=== PATIENT | male | born 1990 | race Two or more races ===

== ENCOUNTER 2022-05-09 19:59 | Emergency (ER) | payer OTHER, SELFPAY ==
[2022-05-09 20:08] VITALS: BP 144/99; PULSE 80; RESP 20; TEMP 36.8; O2SAT 98; BMI 25.1
[2022-05-09 20:30] LABS: Appearance Urine Clear; Color Urine Yellow; Glucose Urine UA Negative (Negative); Leukocyte Esterase Urine Negative (Negative); Nitrite Urine Negative (Negative); PH 8.5 (5.0-9.0); Urine Blood Negative (Negative); Urine Ketones Trace mg/dL (Negative); Urine Protein Negative (Neg-Trace)
[2022-05-09 20:50] LABS: IDNOW Serial# 6674DD1D; Influenza A Negative (Negative); Influenza B2 Negative (Negative)
[2022-05-09 20:51] LABS: COVID-19 Test Negative (Negative); IDNOW Serial# 55D5AD1C
[2022-05-09 21:05] LABS: MANUAL DIFF FLAG NO
[2022-05-09 21:06] LABS: Basophils Absolute Auto 0.1 X10*3/uL (0.0-0.2); Basophils Percent Auto 0.8 % (0-2); Eosinophils Absolute Auto 0.1 X10*3/uL (0.0-0.4); Eosinophils Percent Auto 1.2 % (0-4); Hematocrit 43.3 % (42.0-52.0); Hemoglobin 15.6 g/dl (14.0-18.0); Imm Gran Abs Auto 0.02 X10*3/uL (0.00-0.03); Imm Gran Pct Auto 0.2 % (0.0-0.4); Lymphocytes Absolute Auto 2.5 X10*3/uL (1.2-4.9); Lymphocytes Percent Auto 28.1 % (20-40); Mean Corpuscular Hemoglobin 31.6 pg (27.0-33.0); Mean Corpuscular Volume 87.7 fL (80.0-98.0); Mean Platelet Volume 11.4 fL (9.4-12.4); Monocytes Absolute Auto 0.7 X10*3/uL (0.1-1.2); Monocytes Percent Auto 7.7 % (2-11); Neutrophils Absolute Auto 5.5 x10*3/uL (2.0-8.3); Platelet Count 305 X10*3/uL (160-400); Red Blood Count 4.94 X10*6/uL (4.60-5.80); Red Cell Distribution Width 12.7 % (11.0-16.0); White Blood Count 8.9 X10*3/uL (4.8-10.8)
[2022-05-09] MEDS: 0.9 % Sodium Chloride 1,000 ML 999 ML IV (21:09)
--- NOTE | 2022-05-09 21:12 | ED_ITS ---
HPI - General Adult General Chief complaint: General Medical Stated complaint: vomiting/ weakness Time Seen by Provider: 05/09/22 20:36 Source: patient Mode of arrival: ambulatory Limitations: no limitations History of Present Illness HPI narrative: Return 1 old male presents to the ED for nausea, vomiting, and diarrhea the past 3 days. Patient denies any fever, chills, symptoms, recent long travel, coughing, sore throat, chest pain, or shortness of breath. Patient admits his last use of Percocet was 3 days ago and going through withdrawals. Patient states percocet was never prescribed. 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 Patient states also smoked marijuana. Patient denies any other drug use. Related Data Allergies Allergy/AdvReac Type Severity Reaction Status Date / Time Penicillins [PENICILLINS] Allergy Unknown UNKNOWN Verified 05/09/22 21:43 Review of Systems Review of Systems: nausea, vomitting, and diarrhea Yes all other systems are reviewed and are negative PMFSH Social History Social History Advance Directives: No Advance Directives Information Provided: Yes Physical Exam ED Vital Signs: Vital Signs - 24 hr 05/09/22 20:08 Temperature 98.3 F Pulse Rate 80 Respiratory Rate 20 Blood Pressure 144/99 H Pulse Oximetry 98 Oxygen Delivery Method Room Air BMI result Body Mass Index 25.1 Const General: cooperative, healthy appearing, comfortable, no acute distress, well developed, alert, awake and Physically active Orientation/consciousness: oriented to person, oriented to place, oriented to time and patient oriented x3 HENMT Head: Yes normal to inspection, Yes No palpable skull fracture present, Yes normocephalic, Yes atraumatic and No abrasion Eyes General: appearance normal, both eyes and all related structures Neck Neck: Yes normal visual inspection, Yes full ROM, Yes no lymphadenopathy, Yes no meningeal signs, Yes trachea midline, Yes supple, No anterior neck swelling and No tender Chest Chest palpation & inspection: normal inspection of the chest and normal palpation of entire chest wall Resp Effort & Inspection: normal respiratory effort and able to speak in complete sentences Auscultation: clear to auscultation bilaterally Cardio Jugular venous distension: no JVD Heart sounds: S1 normal heart sound present and S2 normal heart sound present GI Inspection: Yes normal to inspection and No abdominal wall ecchymosis Palpation (GI): Soft to palpation, not firm, nontender, no guarding and not rigid General: No CVA tenderness and Yes no CVA tenderness Back/Spine/Pelvis Back: no CVA tenderness, No CVA tenderness and No back tenderness Skin General skin exam: no rashes or lesions noted, elasticity normal and turgor normal Neuro General: oriented to person, oriented to place, oriented to time, patient oriented x3, gait normal, tone normal, moves all extremities, Normal light touch and pain sensation, no meningeal signs, no focal motor deficits, CN's II-XI intact bilaterally and normal sensation to monofilament Extrem General: Yes normal to inspection and Yes full ROM Psych Appearance: grossly normal, well kempt and not disheveled Course Course Course Narrative: Differential gastroenteritis versus opiate withdrawal. Labs, fluids, Zofran, and Pepcid ordered. Reevaluation(s) Reevaluation #1: Patient feels better after receiving IV fluids and Zofran. Labs are normal. Patient given list of detox centers to call for follow up to help opoid dependence. Also given paper for [facility] for also opiate dependence. Time: 22:53 Medications Administered Discontinued Medications Generic Name Dose Route Start Last Admin Trade Name Freq PRN Reason Stop Dose Admin Famotidine 20 mg 05/09/22 21:15 05/09/22 21:21 Famotidine/Pf 20 Mg/2 Ml Vial IVPUSH 05/09/22 21:16 20 mg ONCE ONE Administration Sodium Chloride 1,000 mls @ 999 mls/hr 05/09/22 20:47 05/09/22 22:46 Ns IV 05/09/22 21:47 Infused .Q1H1M STA Infusion Ondansetron HCl 4 mg 05/09/22 21:09 05/09/22 21:14 Ondansetron Hcl 4 Mg/2 Ml Vial IVPUSH 05/09/22 21:10 4 mg ONCE ONE Administration Medical Decision Making Medical Decision Making MDM Narrative: Due to her mild presents to ED for nausea vomiting and diarrhea. Patient has not had Percocets and 3 days which he has taken every day 15 mg per day for 1 year. Labs ordered. Patient given IV fluids and Zofran. SARs ordered. Differential Diagnosis Differential Diagnoses: The differential diagnosis associated with the presentation includes (Gastroenteritis. opoid withdrawal, covid, SARS, RSV, Influenza) Admission/Observation Consideration of admission/observation: Escalation of care including admission/observation considered Lab Data MDM Lab Attestation statement: I reviewed the patient's lab results. 05/09/22 20:58 05/09/22 20:58 Labs: Lab Results 05/09/22 05/09/22 05/09/22 Range/Units 20:21 20:21 20:21 WBC (4.8-10.8) X10*3/uL RBC (4.60-5.80) X10*6/uL Hgb (14.0-18.0) g/dl Hct (42.0-52.0) % MCV (80.0-98.0) fL MCH (27.0-33.0) pg MCHC (31.0-36.0) g/dl RDW (11.0-16.0) % Plt Count (160-400) X10*3/uL MPV (9.4-12.4) fL Immature Gran % (Auto) (0.0-0.4) % Neut % (Auto) (45-73) % Lymph % (Auto) (20-40) % [place] % (Auto) (2-11) % Eos % (Auto) (0-4) % Baso % (Auto) (0-2) % Lymph # (Auto) (1.2-4.9) X10*3/uL Placer # (Auto) (0.1-1.2) X10*3/uL Eos # (Auto) (0.0-0.4) X10*3/uL Baso # (Auto) (0.0-0.2) X10*3/uL Abs Immat Gran (auto) (0.00-0.03) X10*3/uL Absolute Neuts (auto) (2.0-8.3) x10*3/uL Absolute Nucleated RBC (0.0-0.012) X10*3/uL Nucleated RBC % (auto) (0.0-0.2) /100WBC Sodium (135-145) mmol/L Potassium (3.3-5.1) mmol/L Chloride (96-108) mmol/L Carbon Dioxide (22-29) mmol/L Anion Gap (12-20) BUN (9-16) mg/dL Creatinine (0.5-1.4) mg/dL Estim Creat Clear Calc Estimated GFR Random Glucose (60-115) mg/dL Calcium (8.4-10.2) mg/dL Total Bilirubin (0.0-1.0) mg/dL AST (5-37) U/L ALT (0-40) U/L Alkaline Phosphatase (39-117) U/L Total Protein (6.5-8.0) g/dL Albumin (3.5-5.0) g/dL Urine Color Yellow Urine Appearance Clear Urine pH 8.5 (5.0-9.0) Ur Specific [place] 1.020 (1.005-1.025) Urine Protein Negative (Neg-Trace) mg/dL Urine Glucose (UA) Negative (Negative) mg/dL Urine Ketones Trace (Negative) mg/dL Urine Blood Negative (Negative) Urine Nitrite Negative (Negative) Ur Leukocyte Esterase Negative (Negative) COVID-19 ([facility]) Negative (Negative) COVID-19 Clin Com See Note Influenza Type A (B[facility]) Negative (Negative) Influenza Type B (BRAYAN) Negative (Negative) Influenza A & B Note See Note 05/09/22 05/09/22 Range/Units 20:58 20:58 WBC 8.9 (4.8-10.8) X10*3/uL RBC 4.94 (4.60-5.80) X10*6/uL Hgb 15.6 (14.0-18.0) g/dl Hct 43.3 (42.0-52.0) % MCV 87.7 (80.0-98.0) fL MCH 31.6 (27.0-33.0) pg MCHC 36.0 (31.0-36.0) g/dl RDW 12.7 (11.0-16.0) % Plt Count 305 (160-400) X10*3/uL MPV 11.4 (9.4-12.4) fL Immature Gran % (Auto) 0.2 (0.0-0.4) % Neut % (Auto) 62.0 (45-73) % Lymph % (Auto) 28.1 (20-40) % Placer % (Auto) 7.7 (2-11) % Eos % (Auto) 1.2 (0-4) % Baso % (Auto) 0.8 (0-2) % Lymph # (Auto) 2.5 (1.2-4.9) X10*3/uL Placer # (Auto) 0.7 (0.1-1.2) X10*3/uL Eos # (Auto) 0.1 (0.0-0.4) X10*3/uL Baso # (Auto) 0.1 (0.0-0.2) X10*3/uL Abs Immat Gran (auto) 0.02 (0.00-0.03) X10*3/uL Absolute Neuts (auto) 5.5 (2.0-8.3) x10*3/uL Absolute Nucleated RBC 0.000 (0.0-0.012) X10*3/uL Nucleated RBC % (auto) 0.0 (0.0-0.2) /100WBC Sodium 140 (135-145) mmol/L Potassium 4.3 (3.3-5.1) mmol/L Chloride 107 (96-108) mmol/L Carbon Dioxide 27 (22-29) mmol/L Anion Gap 10 L (12-20) BUN 11 (9-16) mg/dL Creatinine 0.99 (0.5-1.4) mg/dL Estim Creat Clear Calc 106.1 Estimated GFR > 60 Random Glucose 81 (60-115) mg/dL Calcium 9.7 (8.4-10.2) mg/dL Total Bilirubin 0.6 (0.0-1.0) mg/dL AST 21 (5-37) U/L ALT 31 (0-40) U/L Alkaline Phosphatase 62 (39-117) U/L Total Protein 6.9 (6.5-8.0) g/dL Albumin 4.3 (3.5-5.0) g/dL Urine Color Urine Appearance Urine pH (5.0-9.0) Ur Specific [place] (1.005-1.025) Urine Protein (Neg-Trace) mg/dL Urine Glucose (UA) (Negative) mg/dL Urine Ketones (Negative) mg/dL Urine Blood (Negative) Urine Nitrite (Negative) Ur Leukocyte Esterase (Negative) COVID-19 ([facility]) (Negative) COVID-19 Clin Com Influenza Type A ([facility]RAYAN) (Negative) Influenza Type B ([facility]RAYAN) (Negative) Influenza A & B Note Independent Historian Clinical information obtained from an independent historian. History obtained from or confirmed by: Spouse and Friend Discharge Plan Discharge Clinical Impression: Opioid withdrawal Patient Disposition: Home, Self-Care Additional Instructions: Your blood work came back normal. UA came back negative for COVID, flu, and RSV. Please follow-up with list of detox centers given to you. To the ED immediately for any tremors, abdominal pain, nausea, vomiting, blood in stool, intractable diarrhea intractable fever, chills coughing, chest pain, shortness of breath, dysuria, hematuria, or any other concerning symptoms. Stand Alone Forms: Work/School Release Interventions: ED Discharge Assessment Last Done: 05/09/22 23:01 Discharge Date/Time: 05/09/22 23:02 Print Language: Greenlandic
[2022-05-09] MEDS: ondansetron HCL 4 MG/2 ML VIAL IVPUSH (21:14)
[2022-05-09] MEDS: Famotidine/PF 20 MG/2 ML VIAL IVPUSH (21:21)
[2022-05-09 21:24] LABS: Alanine Aminotransferase 31 U/L (0-40); Albumin Level 4.3 g/dL (3.5-5.0); Alkaline Phosphatase 62 U/L (39-117); Anion Gap 10 (12-20); Aspartate Amino Transferase 21 U/L (5-37); Bilirubin Total 0.6 mg/dL (0.0-1.0); Blood Urea Nitrogen 11 mg/dL (9-16); Calcium 9.7 mg/dL (8.4-10.2); Carbon Dioxide 27 mmol/L (22-29); Chloride 107 mmol/L (96-108); Creatinine Clr Calc Pharmacy 106.1; Estimated Glomerular Filt Rate > 60; Glucose Random 81 mg/dL (60-115); Potassium 4.3 mmol/L (3.3-5.1); Sodium 140 mmol/L (135-145); Total Protein 6.9 g/dL (6.5-8.0)
--- NOTE | 2022-05-09 21:32 | PC.NURSE ---
pt reports with complaints of n/v/d for the -past 3 days- pt sts his father is at home with similar symptoms. labs, covid/flu swab ordered, 20g IV placed in right medial AC currently infusing 0.9%NS per orders. pt resting with warm blankets, friend at bedside NAD.
== END 2022-05-09 23:02 | disposition home or self-care (01) ==
PROVIDERS: Physician Assistant; Emergency Provider Emergency Medicine Emergency Medical Services
DX: F11.23 Opioid dependence with withdrawal (principal); R11.2 Nausea with vomiting, unspecified; Z20.822 Contact with and (suspected) exposure to COVID-19
CPT/HCPCS: 36415; 80053; 81003; 85025; 87502; 87635; 96361; 96374; 96375; 99284; J2405

== ENCOUNTER 2022-05-29 13:01 | Emergency (ER) | payer OTHER, SELFPAY ==
[2022-05-29 13:15] VITALS: BP 107/66; PULSE 86; RESP 16; TEMP 37.3; O2SAT 97; BMI 24.7
--- NOTE | 2022-05-29 13:15 | ED.GENADULT ---
HPI - General Adult General Chief complaint: Nausea/Vomiting/Diarrhea <JOAN Angelo - Last Filed: 05/29/22 13:16> Stated complaint: not eating, vomiting, dizzy, weak <JOAN Angelo - Last Filed: 05/29/22 13:16> Time Seen by Provider: 05/29/22 16:03 <JOAN Angelo - Last Filed: 05/29/22 13:16> History of Present Illness HPI narrative: patient complains of nausea vomiting and diarrhea for 2-3 days, today he has vomited everything he has eaten, he has had 3 or 4 episodes of watery diarrhea per day, he did have a similar episode of vomiting and diarrhea 3 weeks ago He denies abdominal pain, there is no blood in stool or vomitus, there is no fainting or feeling faint no chest pain no dysuria, no rash, no fever <JOAN Jiménez - Last Filed: 05/29/22 18:15> Related Data Home medications: Previous Rx's Medication Instructions Recorded loperamide 2 mg capsule (Imodium 2 mg PO Q6H PRN loose stool #10 05/29/22 A-D) caps ondansetron 4 mg disintegrating 4 mg PO Q6H PRN nausea and 05/29/22 tablet vomiting #14 tabs <JOAN Angelo - Last Filed: 05/29/22 13:16> Allergies/adverse reactions: Allergies Allergy/AdvReac Type Severity Reaction Status Date / Time Penicillins [PENICILLINS] Allergy Unknown UNKNOWN Verified 05/29/22 13:15 <JOAN Angelo - Last Filed: 05/29/22 13:16> [facility] Past Medical History Source: nursing notes reviewed <JOAN Jiménez - Last Filed: 05/29/22 18:15> Medical History: Medical History (Updated 05/29/22 @ 18:10 by JOAN Jiménez) Anxiety <JOAN Angelo - Last Filed: 05/29/22 13:16> Social History Social History: Social History Alcohol intake: current Alcohol intake frequency: holidays/special occasions only Smoked in Last 30 Days: Yes Use of substances other than those prescribed or required for medical reasons: Yes Substance Use Type: Marijuana Advance Directives: No Advance Directives Information Provided: No <JOAN Angelo Last Filed: 05/29/22 13:16> Physical Exam ED Vital Signs: Vital Signs - 24 hr 05/29/22 13:15 05/29/22 16:00 Temperature 99.2 F 97.8 F Pulse Rate 86 76 Respiratory Rate 16 16 Blood Pressure 107/66 101/66 Pulse Oximetry 97 99 Oxygen Delivery Method Room Air Room Air BMI result Body Mass Index 24.7 <JOAN Angelo Last Filed: 05/29/22 13:16> Vital Signs - 24 hr 05/29/22 13:15 05/29/22 16:00 Temperature 99.2 F 97.8 F Pulse Rate 86 76 Respiratory Rate 16 16 Blood Pressure 107/66 101/66 Pulse Oximetry 97 99 Oxygen Delivery Method Room Air Room Air BMI result Body Mass Index 24.7 <JOAN Jiménez Last Filed: 05/29/22 18:15> general appearance no acute distress The eyes are anicteric no pallor The pharynx no redness swelling or exudate, mucous membranes are mildly dry The neck is supple Chest clear to auscultation bilateral Heart no murmur Abdomen soft nontender Extremities for range of motion x4 Skin no rashes, turgor is normal <JOAN Jiménez Last Filed: 05/29/22 18:15> Course Course Course Narrative: RME performed by Leanne Adams PA-C. Patient is a 31 year old male presenting to the emergency department with nausea, vomiting, and dizziness. Labs ordered. Patient placed abck in the waiting room pending results and room availability. <JOAN Angelo Last Filed: 05/29/22 13:16> RME performed by Leanne Adams PA-C. Patient is a 31 year old male presenting to the emergency department with nausea, vomiting, and dizziness. Labs ordered. Patient placed abck in the waiting room pending results and room availability. No significant findings in lab work, LFTs renal function all normal CBC no anemia, no white count Patient was given a L of fluids and Zofran with resolution of nausea any felt much better and more energetic after the fluids and was sitting up and ready to go home Well-appearing patient tolerating p.o. was discharged <JOAN Jiménez Last Filed: 05/29/22 18:15> Medications Administered Discontinued Medications Generic Name Dose Route Start Last Admin Trade Name Freq PRN Reason Stop Dose Admin Sodium Chloride 1,000 mls @ 999 mls/hr 05/29/22 16:45 05/29/22 16:47 Ns IVCONT 05/29/22 17:45 999 mls/hr .Q1H1M AVILA Administration Ondansetron HCl 4 mg 05/29/22 16:39 05/29/22 16:47 Ondansetron Hcl 4 Mg/2 Ml Vial IVPUSH 05/29/22 16:40 4 mg ONCE ONE Administration <JOAN nAgelo - Last Filed: 05/29/22 13:16> Medications Administered Discontinued Medications Generic Name Dose Route Start Last Admin Trade Name Freq PRN Reason Stop Dose Admin Sodium Chloride 1,000 mls @ 999 mls/hr 05/29/22 16:45 05/29/22 16:47 Ns IVCONT 05/29/22 17:45 999 mls/hr .Q1H1M AVILA Administration Ondansetron HCl 4 mg 05/29/22 16:39 05/29/22 16:47 Ondansetron Hcl 4 Mg/2 Ml Vial IVPUSH 05/29/22 16:40 4 mg ONCE ONE Administration <JOAN Jiménez - Last Filed: 05/29/22 18:15> Medical Decision Making Lab Data MDM Lab Attestation statement: I reviewed the patient's lab results. <JOAN Jiménez - Last Filed: 05/29/22 18:15> Result Diagrams: 05/29/22 13:34 05/29/22 13:34 <JOAN Angelo - Last Filed: 05/29/22 13:16> Labs: Lab Results 05/29/22 05/29/22 05/29/22 Range/Units 13:34 13:34 13:34 WBC 6.0 (4.8-10.8) X10*3/uL RBC 5.21 (4.60-5.80) X10*6/uL Hgb 16.3 (14.0-18.0) g/dl Hct 46.4 (42.0-52.0) % MCV 89.1 (80.0-98.0) fL MCH 31.3 (27.0-33.0) pg MCHC 35.1 (31.0-36.0) g/dl RDW 12.6 (11.0-16.0) % Plt Count 282 (160-400) X10*3/uL MPV 11.5 (9.4-12.4) fL Immature Gran % (Auto) 0.2 (0.0-0.4) % Neut % (Auto) 61.5 (45-73) % Lymph % (Auto) 26.2 (20-40) % [place] % (Auto) 9.1 (2-11) % Eos % (Auto) 2.2 (0-4) % Baso % (Auto) 0.8 (0-2) % Lymph # (Auto) 1.6 (1.2-4.9) X10*3/uL [place] # (Auto) 0.6 (0.1-1.2) X10*3/uL Eos # (Auto) 0.1 (0.0-0.4) X10*3/uL Baso # (Auto) 0.1 (0.0-0.2) X10*3/uL Abs Immat Gran (auto) 0.01 (0.00-0.03) X10*3/uL Absolute Neuts (auto) 3.7 (2.0-8.3) x10*3/uL Absolute Nucleated RBC 0.000 (0.0-0.012) X10*3/uL Nucleated RBC % (auto) 0.0 (0.0-0.2) /100WBC Sodium 143 (135-145) mmol/L Potassium 4.4 (3.3-5.1) mmol/L Chloride 110 H (96-108) mmol/L Carbon Dioxide 25 (22-29) mmol/L Anion Gap 12 (12-20) BUN 9 (9-16) mg/dL Creatinine 1.20 (0.5-1.4) mg/dL Estim Creat Clear Calc 87.5 Estimated GFR > 60 Random Glucose 80 (60-115) mg/dL Calcium 9.6 (8.4-10.2) mg/dL Magnesium 1.9 (1.6-2.6) mg/dL Total Bilirubin 0.7 (0.0-1.0) mg/dL AST 20 (5-37) U/L ALT 29 (0-40) U/L Alkaline Phosphatase 65 (39-117) U/L Total Protein 7.2 (6.5-8.0) g/dL Albumin 4.3 (3.5-5.0) g/dL COVID-19 ([facility]) Negative (Negative) COVID-19 Clin Com See Note <JOAN Angelo - Last Filed: 05/29/22 13:16> Lab Results 05/29/22 05/29/22 05/29/22 Range/Units 13:34 13:34 13:34 WBC 6.0 (4.8-10.8) X10*3/uL RBC 5.21 (4.60-5.80) X10*6/uL Hgb 16.3 (14.0-18.0) g/dl Hct 46.4 (42.0-52.0) % MCV 89.1 (80.0-98.0) fL MCH 31.3 (27.0-33.0) pg MCHC 35.1 (31.0-36.0) g/dl RDW 12.6 (11.0-16.0) % Plt Count 282 (160-400) X10*3/uL MPV 11.5 (9.4-12.4) fL Immature Gran % (Auto) 0.2 (0.0-0.4) % Neut % (Auto) 61.5 (45-73) % Lymph % (Auto) 26.2 (20-40) % [place] % (Auto) 9.1 (2-11) % Eos % (Auto) 2.2 (0-4) % Baso % (Auto) 0.8 (0-2) % Lymph # (Auto) 1.6 (1.2-4.9) X10*3/uL [place] # (Auto) 0.6 (0.1-1.2) X10*3/uL Eos # (Auto) 0.1 (0.0-0.4) X10*3/uL Baso # (Auto) 0.1 (0.0-0.2) X10*3/uL Abs Immat Gran (auto) 0.01 (0.00-0.03) X10*3/uL Absolute Neuts (auto) 3.7 (2.0-8.3) x10*3/uL Absolute Nucleated RBC 0.000 (0.0-0.012) X10*3/uL Nucleated RBC % (auto) 0.0 (0.0-0.2) /100WBC Sodium 143 (135-145) mmol/L Potassium 4.4 (3.3-5.1) mmol/L Chloride 110 H (96-108) mmol/L Carbon Dioxide 25 (22-29) mmol/L Anion Gap 12 (12-20) BUN 9 (9-16) mg/dL Creatinine 1.20 (0.5-1.4) mg/dL Estim Creat Clear Calc 87.5 Estimated GFR > 60 Random Glucose 80 (60-115) mg/dL Calcium 9.6 (8.4-10.2) mg/dL Magnesium 1.9 (1.6-2.6) mg/dL Total Bilirubin 0.7 (0.0-1.0) mg/dL AST 20 (5-37) U/L ALT 29 (0-40) U/L Alkaline Phosphatase 65 (39-117) U/L Total Protein 7.2 (6.5-8.0) g/dL Albumin 4.3 (3.5-5.0) g/dL COVID-19 ([facility]) Negative (Negative) COVID-19 Clin Com See Note <JOAN Jiménez - Last Filed: 05/29/22 18:15> Discharge Plan Discharge Clinical Impression: Gastroenteritis <JOAN Angelo - Last Filed: 05/29/22 13:16> Patient Disposition: Home, Self-Care <JOAN Angelo - Last Filed: 05/29/22 13:16> Additional Instructions: use Zofran if needed for nausea, Imodium if needed for diarrhea Drink plenty of fluids, or Gatorade to stay hydrated Return any time any worse condition or any concerns <JOAN Angelo - Last Filed: 05/29/22 13:16> Prescriptions: New loperamide [Imodium A-D] 2 mg capsule 2 mg PO Q6H PRN (Reason: loose stool) Qty: 10 0RF Rx Instructions: maximum 4 tabs, 8 mg per day ondansetron 4 mg tablet,disintegrating 4 mg PO Q6H PRN (Reason: nausea and vomiting) Qty: 14 0RF <JOAN Angelo - Last Filed: 05/29/22 13:16>
[2022-05-29 13:39] LABS: MANUAL DIFF FLAG NO
[2022-05-29 13:40] LABS: Basophils Absolute Auto 0.1 X10*3/uL (0.0-0.2); Basophils Percent Auto 0.8 % (0-2); Eosinophils Absolute Auto 0.1 X10*3/uL (0.0-0.4); Eosinophils Percent Auto 2.2 % (0-4); Hematocrit 46.4 % (42.0-52.0); Hemoglobin 16.3 g/dl (14.0-18.0); Imm Gran Abs Auto 0.01 X10*3/uL (0.00-0.03); Imm Gran Pct Auto 0.2 % (0.0-0.4); Lymphocytes Absolute Auto 1.6 X10*3/uL (1.2-4.9); Lymphocytes Percent Auto 26.2 % (20-40); Mean Corpuscular HGB Conc 35.1 g/dl (31.0-36.0); Mean Corpuscular Hemoglobin 31.3 pg (27.0-33.0); Mean Corpuscular Volume 89.1 fL (80.0-98.0); Mean Platelet Volume 11.5 fL (9.4-12.4); Monocytes Absolute Auto 0.6 X10*3/uL (0.1-1.2); Monocytes Percent Auto 9.1 % (2-11); Neutrophils Absolute Auto 3.7 x10*3/uL (2.0-8.3); Neutrophils Percent Auto 61.5 % (45-73); Platelet Count 282 X10*3/uL (160-400); Red Blood Count 5.21 X10*6/uL (4.60-5.80); Red Cell Distribution Width 12.6 % (11.0-16.0)
[2022-05-29 13:57] LABS: Alanine Aminotransferase 29 U/L (0-40); Albumin Level 4.3 g/dL (3.5-5.0); Alkaline Phosphatase 65 U/L (39-117); Anion Gap 12 (12-20); Aspartate Amino Transferase 20 U/L (5-37); Bilirubin Total 0.7 mg/dL (0.0-1.0); Blood Urea Nitrogen 9 mg/dL (9-16); Calcium 9.6 mg/dL (8.4-10.2); Carbon Dioxide 25 mmol/L (22-29); Chloride 110 mmol/L (96-108); Creatinine Clr Calc Pharmacy 87.5; Estimated Glomerular Filt Rate > 60; Glucose Random 80 mg/dL (60-115); Magnesium 1.9 mg/dL (1.6-2.6); Potassium 4.4 mmol/L (3.3-5.1); Sodium 143 mmol/L (135-145); Total Protein 7.2 g/dL (6.5-8.0)
[2022-05-29 13:59] LABS: COVID-19 Test Negative (Negative); IDNOW Serial# BCCEAD1C
[2022-05-29 16:00] VITALS: BP 101/66; PULSE 76; RESP 16; TEMP 36.6; O2SAT 99
--- NOTE | 2022-05-29 16:20 | PC.NURSE ---
pt AOx3, vss. reports N/V/D x3days, a recurrence of the same symptoms from three weeks ago. reports frequent nose bleeds
[2022-05-29] MEDS: 0.9 % Sodium Chloride 1,000 ML 999 ML IVCONT (16:47)
[2022-05-29] MEDS: ondansetron HCL 4 MG/2 ML VIAL IVPUSH (16:47)
--- NOTE | 2022-05-29 16:48 | PC.NURSE ---
iv inserted. zofran given per order. fluids running. will cont to monitor
== END 2022-05-29 16:20 | disposition home or self-care (01) ==
PROVIDERS: Physician Assistant Medical; Emergency Provider Emergency Medicine
DX: K52.9 Noninfective gastroenteritis and colitis, unspecified (principal); R11.2 Nausea with vomiting, unspecified; Z20.822 Contact with and (suspected) exposure to COVID-19; Z20.828 Contact with and (suspected) exposure to other viral communicable diseases; Z79.899 Other long term (current) drug therapy
CPT/HCPCS: 80053; 83735; 85025; 87635; 96361; 96374; 99284; J2405

== ENCOUNTER 2022-06-06 09:28 | Emergency (ER) | payer OTHER, SELFPAY ==
[2022-06-06 09:31] VITALS: BP 107/72; PULSE 92; RESP 18; TEMP 36.9; O2SAT 99; BMI 22.1
[2022-06-06 09:44] LABS: MANUAL DIFF FLAG NO
[2022-06-06 10:02] LABS: Basophils Absolute Auto 0.1 X10*3/uL (0.0-0.2); Basophils Percent Auto 0.9 % (0-2); Eosinophils Absolute Auto 0.1 X10*3/uL (0.0-0.4); Eosinophils Percent Auto 1.2 % (0-4); Hematocrit 46.5 % (42.0-52.0); Hemoglobin 16.7 g/dl (14.0-18.0); Imm Gran Abs Auto 0.02 X10*3/uL (0.00-0.03); Imm Gran Pct Auto 0.3 % (0.0-0.4); Lymphocytes Percent Auto 34.5 % (20-40); Mean Corpuscular HGB Conc 35.9 g/dl (31.0-36.0); Mean Corpuscular Hemoglobin 31.5 pg (27.0-33.0); Mean Corpuscular Volume 87.6 fL (80.0-98.0); Mean Platelet Volume 12.7 fL (9.4-12.4); Monocytes Absolute Auto 0.8 X10*3/uL (0.1-1.2); Monocytes Percent Auto 13.7 % (2-11); Neutrophils Absolute Auto 2.8 x10*3/uL (2.0-8.3); Neutrophils Percent Auto 49.4 % (45-73); Platelet Count 249 X10*3/uL (160-400); Red Blood Count 5.31 X10*6/uL (4.60-5.80); Red Cell Distribution Width 12.9 % (11.0-16.0); White Blood Count 5.8 X10*3/uL (4.8-10.8)
[2022-06-06 10:04] LABS: COVID-19 Test Positive (Negative); IDNOW Serial# 08D9AD1C
--- NOTE | 2022-06-06 10:05 | ED_ITS ---
HPI - Nausea/Vomiting/Diarrhea General Chief complaint: Abdominal Pain Stated complaint: vomitting Time Seen by Provider: 06/06/22 09:53 Source: patient Mode of arrival: ambulatory Limitations: no limitations History of Present Illness HPI Narrative: This is a 31 years old presented to the emergency room with a chief complaint of nausea and vomiting, he states that he is coming off of Percocet. MD elicited complaint: nausea and vomiting Onset (ago): day(s) (4) Description of vomiting: watery Associated nausea: Yes Associated abdominal pain: No Location of pain: none Exacerbating factors: none Relieving factors: none Related Data Previous Rx's Medication Instructions Recorded loperamide 2 mg capsule (Imodium 2 mg PO Q6H PRN loose stool #10 05/29/22 A-D) caps ondansetron 4 mg disintegrating 4 mg PO Q6H PRN nausea and 05/29/22 tablet vomiting #14 tabs Allergies Allergy/AdvReac Type Severity Reaction Status Date / Time Penicillins [PENICILLINS] Allergy Unknown UNKNOWN Verified 05/29/22 13:15 Review of Systems Constitutional: Constitutional: Reports no additional constitutional complaints Cardiovascular: Cardiovascular: Reports no additional cardiovascular complaints Gastrointestinal: Gastrointestinal: Reports nausea and Reports vomiting PMFSH Past Medical History Attestation statement: The following information was validated with the patient. Medical History Anxiety Social History Social History Alcohol intake: never Use of substances other than those prescribed or required for medical reasons: No Substance Use Type: Marijuana Advance Directives: No Advance Directives Information Provided: No Physical Exam Vital Signs: Vital Signs: Last Vital Signs Temp 98.5 F 06/06/22 09:31 Pulse 92 06/06/22 09:31 Resp 18 06/06/22 09:31 BP 107/72 06/06/22 09:31 Pulse Ox 99 06/06/22 09:31 O2 Del Method Room Air 06/06/22 09:31 BMI result Body Mass Index 22.1 Const: General: cooperative and healthy appearing Nutritional Appearance: well nourished Orientation/consciousness: patient oriented x3 Limitations: no limitations HEENT: Head: Yes normal to inspection Ears: hearing grossly normal bilaterally Face and sinus: Yes normal facial exam Mouth: Normal oral and palatal mucosa present Throat: Yes posterior oropharynx normal Neck: Neck: Yes normal visual inspection and Yes full ROM Chest: Chest palpation & inspection: normal inspection of the chest Resp: Effort & Inspection: normal respiratory effort and able to speak in complete sentences Auscultation: clear to auscultation bilaterally Cardio: Jugular venous distension: no JVD Rate: regular rate Rhythm: regular rhythm GI: Inspection: Yes normal to inspection Palpation (GI): Soft to palpation, not firm and nontender Skin: General skin exam: no rashes or lesions noted, elasticity normal and turgor normal Neuro: General: patient oriented x3 Course Reevaluation(s) Reevaluation #1: I feel great,can I go home now? Patient feels well labs okay is COVID positive proceed with discharge Time: 12:07 Medications Administered Discontinued Medications Generic Name Dose Route Start Last Admin Trade Name Freq PRN Reason Stop Dose Admin Sodium Chloride 1,000 mls @ 999 mls/hr 06/06/22 10:15 06/06/22 11:02 Ns IVCONT 06/06/22 11:15 Infused .Q1H1M AVILA Infusion Sodium Chloride 1,000 mls @ 999 mls/hr 06/06/22 10:15 06/06/22 11:25 Ns IVCONT 06/06/22 11:15 999 mls/hr .Q1H1M AVILA Administration Metoclopramide HCl 10 mg 06/06/22 10:03 06/06/22 10:16 Metoclopramide Hcl 10 Mg/2 Ml Vial IVPUSH 06/06/22 10:04 10 mg ONCE ONE Administration Medical Decision Making Medical Decision Making [facility] Narrative: Patient presented with nausea vomiting we go ahead and insert an IV hydrate him antiemetic and reassess Differential Diagnosis Differential Diagnoses: The differential diagnosis associated with the presentation includes Differential diagnosis is broad including withdrawal syndrome from opioid CT/gastroenteritis/viral illness Lab Data [facility] Lab Attestation statement: I reviewed the patient's lab results. 06/06/22 09:40 06/06/22 05:00 Labs: Lab Results 06/06/22 06/06/22 06/06/22 Range/Units 05:00 09:40 09:40 WBC 5.8 (4.8-10.8) X10*3/uL RBC 5.31 (4.60-5.80) X10*6/uL Hgb 16.7 (14.0-18.0) g/dl Hct 46.5 (42.0-52.0) % MCV 87.6 (80.0-98.0) fL MCH 31.5 (27.0-33.0) pg MCHC 35.9 (31.0-36.0) g/dl RDW 12.9 (11.0-16.0) % Plt Count 249 (160-400) X10*3/uL MPV 12.7 H (9.4-12.4) fL Immature Gran % (Auto) 0.3 (0.0-0.4) % Neut % (Auto) 49.4 (45-73) % Lymph % (Auto) 34.5 (20-40) % [place] % (Auto) 13.7 H (2-11) % Eos % (Auto) 1.2 (0-4) % Baso % (Auto) 0.9 (0-2) % Lymph # (Auto) 2.0 (1.2-4.9) X10*3/uL [place] # (Auto) 0.8 (0.1-1.2) X10*3/uL Eos # (Auto) 0.1 (0.0-0.4) X10*3/uL Baso # (Auto) 0.1 (0.0-0.2) X10*3/uL Abs Immat Gran (auto) 0.02 (0.00-0.03) X10*3/uL Absolute Neuts (auto) 2.8 (2.0-8.3) x10*3/uL Absolute Nucleated RBC 0.000 (0.0-0.012) X10*3/uL Nucleated RBC % (auto) 0.0 (0.0-0.2) /100WBC Sodium 142 (135-145) mmol/L Potassium 4.0 (3.3-5.1) mmol/L Chloride 110 H (96-108) mmol/L Carbon Dioxide 20 L (22-29) mmol/L Anion Gap 16 (12-20) BUN 10 (9-16) mg/dL Creatinine 1.15 (0.5-1.4) mg/dL Estim Creat Clear Calc 87.9 Estimated GFR > 60 Random Glucose 99 (60-115) mg/dL Calcium 9.5 (8.4-10.2) mg/dL Total Bilirubin 0.6 (0.0-1.0) mg/dL AST 20 (5-37) U/L ALT 25 (0-40) U/L Alkaline Phosphatase 62 (39-117) U/L Total Protein 7.2 (6.5-8.0) g/dL Albumin 4.4 (3.5-5.0) g/dL Urine Color Urine Appearance Urine pH (5.0-9.0) Ur Specific [place] (1.005-1.025) Urine Protein (Neg-Trace) mg/dL Urine Glucose (UA) (Negative) mg/dL Urine Ketones (Negative) mg/dL Urine Blood (Negative) Urine Nitrite (Negative) Ur Leukocyte Esterase (Negative) Urine RBC (0-2) /HPF Urine WBC (0-5) /HPF Ur Squamous Epith Cells (0-2) /HPF Urine Bacteria (None Seen) Hyaline Casts (0-2) /LPF COVID-19 ([facility]) Positive A (Negative) COVID-19 Clin Com See Note 06/06/22 Range/Units 11:43 WBC (4.8-10.8) X10*3/uL RBC (4.60-5.80) X10*6/uL Hgb (14.0-18.0) g/dl Hct (42.0-52.0) % MCV (80.0-98.0) fL MCH (27.0-33.0) pg MCHC (31.0-36.0) g/dl RDW (11.0-16.0) % Plt Count (160-400) X10*3/uL MPV (9.4-12.4) fL Immature Gran % (Auto) (0.0-0.4) % Neut % (Auto) (45-73) % Lymph % (Auto) (20-40) % [place] % (Auto) (2-11) % Eos % (Auto) (0-4) % Baso % (Auto) (0-2) % Lymph # (Auto) (1.2-4.9) X10*3/uL [place] # (Auto) (0.1-1.2) X10*3/uL Eos # (Auto) (0.0-0.4) X10*3/uL Baso # (Auto) (0.0-0.2) X10*3/uL Abs Immat Gran (auto) (0.00-0.03) X10*3/uL Absolute Neuts (auto) (2.0-8.3) x10*3/uL Absolute Nucleated RBC (0.0-0.012) X10*3/uL Nucleated RBC % (auto) (0.0-0.2) /100WBC Sodium (135-145) mmol/L Potassium (3.3-5.1) mmol/L Chloride (96-108) mmol/L Carbon Dioxide (22-29) mmol/L Anion Gap (12-20) BUN (9-16) mg/dL Creatinine (0.5-1.4) mg/dL Estim Creat Clear Calc Estimated GFR Random Glucose (60-115) mg/dL Calcium (8.4-10.2) mg/dL Total Bilirubin (0.0-1.0) mg/dL AST (5-37) U/L ALT (0-40) U/L Alkaline Phosphatase (39-117) U/L Total Protein (6.5-8.0) g/dL Albumin (3.5-5.0) g/dL Urine Color Yellow Urine Appearance Clear Urine pH 6.0 (5.0-9.0) Ur Specific [place] 1.015 (1.005-1.025) Urine Protein Negative (Neg-Trace) mg/dL Urine Glucose (UA) Negative (Negative) mg/dL Urine Ketones Trace (Negative) mg/dL Urine Blood Negative (Negative) Urine Nitrite Negative (Negative) Ur Leukocyte Esterase Negative (Negative) Urine RBC 0-2 (0-2) /HPF Urine WBC 0-5 (0-5) /HPF Ur Squamous Epith Cells 0-2 (0-2) /HPF Urine Bacteria None Seen (None Seen) Hyaline Casts 0-2 (0-2) /LPF COVID-19 ([facility]) (Negative) COVID-19 Clin Com Independent Historian Clinical information obtained from an independent historian. History obtained f rom or confirmed by: Friend Discharge Plan Discharge Clinical Impression: Vomiting, COVID-19 Patient Disposition: Home, Self-Care Instructions: Acute Nausea and Vomiting (ED), COVID-19 (Coronavirus Disease 20 19) (ED) Additional Instructions: Liquid diet today, follow-up with your primary care physician, return if you worse. You tested positive for COVID as well Prescriptions: No Action loperamide [Imodium A-D] 2 mg capsule 2 mg PO Q6H PRN (Reason: loose stool) Qty: 10 0RF Rx Instructions: maximum 4 tabs, 8 mg per day ondansetron 4 mg tablet,disintegrating 4 mg PO Q6H PRN (Reason: nausea and vomiting) Qty: 14 0RF Referrals: Physician,None [Primary Care Provider] - 2 days
[2022-06-06 10:07] LABS: Alanine Aminotransferase 25 U/L (0-40); Albumin Level 4.4 g/dL (3.5-5.0); Alkaline Phosphatase 62 U/L (39-117); Anion Gap 16 (12-20); Aspartate Amino Transferase 20 U/L (5-37); Bilirubin Total 0.6 mg/dL (0.0-1.0); Blood Urea Nitrogen 10 mg/dL (9-16); Calcium 9.5 mg/dL (8.4-10.2); Carbon Dioxide 20 mmol/L (22-29); Chloride 110 mmol/L (96-108); Creatinine Clr Calc Pharmacy 87.9; Estimated Glomerular Filt Rate > 60; Glucose Random 99 mg/dL (60-115); Sodium 142 mmol/L (135-145); Total Protein 7.2 g/dL (6.5-8.0)
[2022-06-06] MEDS: Metoclopramide HCl 10 MG/2 ML VIAL IVPUSH (10:16)
[2022-06-06] MEDS: 0.9 % Sodium Chloride 1,000 ML 999 ML IVCONT ×2 (10:16→11:25)
--- NOTE | 2022-06-06 11:34 | PC.NURSE ---
Patient given weston margarita per request. Ambulated to bathroom to give urine sample
[2022-06-06 11:49] LABS: Appearance Urine Clear; Color Urine Yellow; Glucose Urine UA Negative (Negative); Leukocyte Esterase Urine Negative (Negative); Nitrite Urine Negative (Negative); Specific Gravity - Urine 1.015 (1.005-1.025); Urine Blood Negative (Negative); Urine Ketones Trace mg/dL (Negative); Urine Protein Negative (Neg-Trace)
[2022-06-06 11:52] LABS: Bacteria Urine None Seen (None Seen); Hyaline Casts Urine 0-2 /LPF (0-2); RBC Urine 0-2 /HPF (0-2); Squamous Epithelial Cell Urine 0-2 /HPF (0-2); WBC Urine 0-5 /HPF (0-5)
[2022-06-06 12:16] VITALS: BP 126/86; PULSE 88; RESP 18; TEMP 36.7; O2SAT 100
== END 2022-06-06 12:18 | disposition home or self-care (01) ==
PROVIDERS: Emergency Provider Emergency Medicine
DX: U07.1 COVID-19 (principal); R11.2 Nausea with vomiting, unspecified
CPT/HCPCS: 80053; 81001; 85025; 87635; 96361; 96374; 99284; J2765

== ENCOUNTER 2022-06-27 22:08 | Emergency (ER) | payer OTHER, SELFPAY ==
[2022-06-27 22:24] VITALS: BP 113/69; PULSE 80; RESP 16; TEMP 37.1; O2SAT 97; BMI 25.1
[2022-06-27 22:41] LABS: Hematocrit 43.8 % (42.0-52.0); Hemoglobin 15.4 g/dl (14.0-18.0); Mean Corpuscular HGB Conc 35.2 g/dl (31.0-36.0); Mean Corpuscular Hemoglobin 31.3 pg (27.0-33.0); Mean Platelet Volume 11.9 fL (9.4-12.4); Platelet Count 298 X10*3/uL (160-400); Red Blood Count 4.92 X10*6/uL (4.60-5.80); Red Cell Distribution Width 12.9 % (11.0-16.0); White Blood Count 10.6 X10*3/uL (4.8-10.8)
[2022-06-27 22:54] LABS: Alanine Aminotransferase 65 U/L (0-40); Albumin Level 4.3 g/dL (3.5-5.0); Alkaline Phosphatase 66 U/L (39-117); Anion Gap 10 (12-20); Aspartate Amino Transferase 26 U/L (5-37); Bilirubin Total 0.5 mg/dL (0.0-1.0); Blood Urea Nitrogen 13 mg/dL (9-16); Calcium 9.3 mg/dL (8.4-10.2); Carbon Dioxide 28 mmol/L (22-29); Chloride 108 mmol/L (96-108); Creatinine Clr Calc Pharmacy 97.2; Estimated Glomerular Filt Rate > 60; Glucose Random 80 mg/dL (60-115); Sodium 142 mmol/L (135-145); Total Protein 6.9 g/dL (6.5-8.0)
--- NOTE | 2022-06-27 23:42 | ED_ITS ---
HPI - General Adult General Chief complaint: Headache Stated complaint: headache weakness Time Seen by Provider: 06/27/22 23:39 Source: patient Mode of arrival: ambulatory Limitations: no limitations History of Present Illness HPI narrative: Patient is a 31 year old assigned male at with no reported medical history presenting to the emergency department today with nasal congestion, headache, and intermittent dizziness. Patient states that over the last month he has had intermittent dizziness, nasal congestion, and a headache. Patient denies any current dizziness, lightheadedness, abdominal pain, nausea, vomiting, fever, chills, blurry vision, double vision, loss of vision, chest pain, difficulty breathing, shortness of breath, back pain, night sweats, pain with urination, increased urinary frequency, increased urinary urgency, blood in his urine or stool, syncope or a near syncopal episode, recent trauma or falls, bowel incontinence, bladder incontinence, bowel retention, bladder retention, or any other complaints at this time. Onset (ago): month(s) (1) Severity: mild Relieving factors: none Exacerbating factors: none Associated symptoms: denies other symptoms Treatments prior to arrival: none Related Data Previous Rx's Medication Instructions Recorded loperamide 2 mg capsule (Imodium 2 mg PO Q6H PRN loose stool #10 05/29/22 A-D) caps ondansetron 4 mg disintegrating 4 mg PO Q6H PRN nausea and 05/29/22 tablet vomiting #14 tabs doxycycline hyclate 100 mg tablet 100 mg PO BID 7 days #14 tabs 06/27/22 Allergies Allergy/AdvReac Type Severity Reaction Status Date / Time Penicillins [PENICILLINS] Allergy Unknown UNKNOWN Verified 05/29/22 13:15 Review of Systems Constitutional: Constitutional: Reports no additional constitutional complain ts, Denies chills, Denies fever(s), Reports headache(s) and Denies night sweats Eyes: Eyes: Reports no additional eye complaints, Denies blurry vision, Denies change in vision, Denies diplopia, Denies eye discharge, Denies loss of vision and Denies eye pain ENT: Reports dizziness (intermittent), Reports headache(s) and Reports nasal congestion Cardiovascular: Cardiovascular: Reports no additional cardiovascular complaints, Denies chest pain, Denies lightheadedness, Denies Loss of Consciousness and Denies dyspnea Respiratory: Respiratory: Reports no additional respiratory complaints and Denies dyspnea Gastrointestinal: Gastrointestinal: Reports no additional gastrointestinal complaints, Denies abdominal pain, Denies melena, Denies hematochezia, Denies change in bowel habits and Denies change in stool character Genitourinary: Genitourinary: Reports no additional male genitourinary complaints, Denies hematuria, Denies oliguria, Denies difficulty urinating, Denies dysuria, Denies urinary frequency, Denies urinary hesitancy, Denies urinary incontinence and Denies urinary urgency Musculoskeletal: Musculoskeletal: Reports no additional musculoskeletal complaints, Denies numbness and Denies tingling Neurologic: Reports dizziness (intermittent), Reports headache(s), Denies loss of vision, Denies numbness and Denies tingling Psychiatric: Psychiatric: Reports no additional psychiatric complaints Endocrine: Endocrine: Reports no additional endocrine complaints Hematologic/Lymphatic: Hematologic/Lymphatic: Reports no additional hematologic/lymphatic complaints Allergic/Immunologic: Allergic/Immunologic: Reports no additional allergic/immunologic complaints PMFSH Past Medical History Attestation statement: The following information was validated with the patient. Source: old records reviewed and nursing notes reviewed Medical History Anxiety Social History Social History Alcohol intake: never Substance Use Type: Marijuana Advance Directives: No Advance Directives Information Provided: Yes Physical Exam ED Vital Signs: Vital Signs - 24 hr 06/27/22 22:24 06/28/22 00:00 Temperature 98.7 F 98.4 F Pulse Rate 80 64 Respiratory Rate 16 16 Blood Pressure 113/69 113/69 Pulse Oximetry 97 98 Oxygen Delivery Method Room Air Room Air BMI result Body Mass Index 25.1 Const General: cooperative, no acute distress, alert and awake Nutritional Appearance: well nourished Orientation/consciousness: patient oriented x3 Limitations: no limitations HENMT Head: Yes normal to inspection and Yes atraumatic Ears: hearing grossly normal bilaterally and external ears normal General nose exam: Normal external nose present, no nasal discharge noted and no epistaxis Face and sinus: Yes normal facial exam, No abrasion and No laceration Mouth: Normal oral and palatal mucosa present, no drooling and no muffled voice Eyes General: appearance normal, both eyes and all related structures Periorbital: periorbital findings normal Eyelids: Yes eyelids normal Conjunctivae: conjunctivae normal Pupils: Equal, round and reactive pupils present EOM: EOMs intact bilaterally Neck Neck: Yes normal visual inspection, Yes full ROM and Yes no lymphadenopathy Chest Chest palpation & inspection: normal inspection of the chest Resp Effort & Inspection: normal respiratory effort and able to speak in complete sentences GI Inspection: Yes normal to inspection Neuro General: patient oriented x3 and moves all extremities Cranial nerves: Yes Equal, round and reactive pupils present Cognition (Neuro): normal cognition Motor exam (neuro): 5/5 motor strength present throughout Sensory Exam: Normal double simultaneous stimulation for sensation Coordination: [id number] test normal Extrem General: Yes normal to inspection, Yes full ROM and Yes capillary refill normal Psych Appearance: grossly normal Mental Status: mental status grossly normal Affect: normal affect Attitude: cooperative Thought process: Normal thought process present Thought content: Normal thought content present Insight: Good insight present (Psych) Medications Administered Discontinued Medications Generic Name Dose Route Start Last Admin Trade Name Freq PRN Reason Stop Dose Admin Acetaminophen 975 mg 06/27/22 23:52 06/28/22 00:22 Acetaminophen 325 Mg Tablet PO 06/27/22 23:53 975 mg ONCE ONE Administration Doxycycline Monohydrate 100 mg 06/27/22 23:52 06/28/22 00:22 Doxycycline Monohydrate 100 Mg Capsule PO 06/27/22 23:53 100 mg ONCE ONE Administration Medical Decision Making Medical Decision Making [facility] Narrative: Patient is a 31 year old assigned male at with no reported medical history presenting to the emergency department today with nasal congestion, a headache, and intermittent dizziness. Patient's physical exam was unremarkable. Patient's blood work was unremarkable. I explained my physical exam findings as well as all test results to the patient. I answered all questions asked by the patient. I stressed the importance of the patient taking his medication as prescribed. I stressed the importance of the patient following up with his primary care pr ovider. I stressed the importance of the patient returning to the emergency department immediately if his symptoms were to worsen or if he were to develop any dizziness, shortness of breath, difficulty breathing, chest pain, blurry vision, loss of vision, nausea, vomiting, abdominal pain, fever, chills, back pain, or any other complaints. Patient verbalized agreement and understanding with this treatment plan and discharge. Differential Diagnosis Differential Diagnoses: The differential diagnosis associated with the presentation includes sinusitis Lab Data [facility] Lab Attestation statement: I reviewed the patient's lab results. 06/27/22 22:35 06/27/22 22:35 Labs: Lab Results 06/27/22 06/27/22 Range/Units 22:35 22:35 WBC 10.6 (4.8-10.8) X10*3/uL RBC 4.92 (4.60-5.80) X10*6/uL Hgb 15.4 (14.0-18.0) g/dl Hct 43.8 (42.0-52.0) % MCV 89.0 (80.0-98.0) fL MCH 31.3 (27.0-33.0) pg MCHC 35.2 (31.0-36.0) g/dl RDW 12.9 (11.0-16.0) % Plt Count 298 (160-400) X10*3/uL MPV 11.9 (9.4-12.4) fL Absolute Nucleated RBC 0.000 (0.0-0.012) X10*3/uL Nucleated RBC % (auto) 0.0 (0.0-0.2) /100WBC Sodium 142 (135-145) mmol/L Potassium 4.0 (3.3-5.1) mmol/L Chloride 108 (96-108) mmol/L Carbon Dioxide 28 (22-29) mmol/L Anion Gap 10 L (12-20) BUN 13 (9-16) mg/dL Creatinine 1.08 (0.5-1.4) mg/dL Estim Creat Clear Calc 97.2 Estimated GFR > 60 Random Glucose 80 (60-115) mg/dL Calcium 9.3 (8.4-10.2) mg/dL Total Bilirubin 0.5 (0.0-1.0) mg/dL AST 26 (5-37) U/L ALT 65 H (0-40) U/L Alkaline Phosphatase 66 (39-117) U/L Total Protein 6.9 (6.5-8.0) g/dL Albumin 4.3 (3.5-5.0) g/dL Discharge Plan Discharge Clinical Impression: Sinusitis Patient Disposition: Home, Self-Care Instructions: Sinusitis (ED) Additional Instructions: Follow up with your primary care provider. Return to the emergency department immediately if your symptoms worsen or if you develop any dizziness, shortness of breath, difficulty breathing, chest pain, blurry vision, loss of vision, nausea, vomiting, abdominal pain, fever, chills, back pain, or any other complaints. Prescriptions: New doxycycline hyclate 100 mg tablet 100 mg PO BID 7 Days Qty: 14 0RF No Action loperamide [Imodium A-D] 2 mg capsule 2 mg PO Q6H PRN (Reason: loose stool) Qty: 10 0RF Rx Instructions: maximum 4 tabs, 8 mg per day ondansetron 4 mg tablet,disintegrating 4 mg PO Q6H PRN (Reason: nausea and vomiting) Qty: 14 0RF Referrals: [facility] [place] Family Medicine [Provider Group] (Call to establish and follow up with a primary care provider. If you already have a primary care provider, please follow up with them.) [facility] [place] Primary Care, [place] [Provider Group] (Call to establish and follow up with a primary care provider. If you already have a primary care provider, please follow up with them.) [facility] [place] (Call to establish and follow up with a primary care provider. If you already have a primary care provider, please follow up with them.) [facility] [Physician] - (Call to establish and follow up with a primary care provider. If you already have a primary care provider, please follow up with them.) Stand Alone Forms: Work/School Release Interventions: ED Discharge Assessment Last Done: 06/28/22 00:26 Discharge Date/Time: 06/28/22 00:27 Print Language: Albanian
[2022-06-28] VITALS: BP 113/69; PULSE 64; RESP 16; TEMP 36.9; O2SAT 98
[2022-06-28] MEDS: Acetaminophen 325 MG TABLET 975 MG PO (00:22)
[2022-06-28] MEDS: Doxycycline Monohydrate 100 MG CAPSULE PO (00:22)
== END 2022-06-28 00:27 | disposition home or self-care (01) ==
PROVIDERS: Emergency Provider Emergency Medicine Emergency Medical Services
DX: J32.9 Chronic sinusitis, unspecified (principal)
CPT/HCPCS: 36415; 80053; 85027; 99283

== ENCOUNTER 2022-12-29 20:05 | Emergency (ER) | payer OTHER, SELFPAY ==
--- NOTE | ~2022-12-29 | CT_ITS ---
See above combined report for details.
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
[2022-12-29 20:17] VITALS: BP 149/97; PULSE 108; RESP 20; TEMP 36.7; O2SAT 97; BMI 23.2
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
== END 2022-12-29 23:05 | disposition left against medical advice (07) ==
PROVIDERS: Emergency Provider Emergency Medicine
DX: Z04.1 Encounter for examination and observation following transport accident (principal); R51.9 Headache, unspecified; H57.10 Ocular pain, unspecified eye; Z79.899 Other long term (current) drug therapy
CPT/HCPCS: 70450; 72125; 99281; 99284

== ENCOUNTER 2023-01-24 22:38 | Emergency (ER) | payer OTHER, SELFPAY ==
[2023-01-24 22:45] VITALS: BP 145/96; PULSE 114; RESP 18; TEMP 37.2; O2SAT 99; BMI 22.1
--- NOTE | 2023-01-25 00:32 | PC.NURSE ---
pt called x2 and not in waiting room at this time.
== END 2023-01-25 00:33 | disposition left against medical advice (07) ==
PROVIDERS: Emergency Provider Emergency Medicine
DX: R51.9 Headache, unspecified (principal)
CPT/HCPCS: 99281

== ENCOUNTER 2023-01-25 04:24 | Emergency (ER) | payer OTHER, SELFPAY ==
--- NOTE | 2023-01-25 | ECG_ITS ---
Test Reason : PAIN Blood Pressure : / mmHG Vent. Rate : 121 BPM Atrial Rate : 121 BPM P-R Int : 118 ms QRS Dur : 086 ms QT Int : 318 ms P-R-T Axes : 060 026 043 degrees QTc Int : 451 ms Sinus tachycardia Possible Left atrial enlargement Borderline ECG No previous ECGs available Referred By: Rosita Ledezma Electronically Signed By:DEREK BAUTISTA MD
[2023-01-25 04:40] VITALS: BP 125/78; PULSE 129; RESP 16; TEMP 37.1; O2SAT 99; BMI 23.2
--- NOTE | 2023-01-25 04:42 | PC.NURSE ---
hr elevated provider made aware and is at bedside. pt denies chest pain but states he just gave up energy drinks.
--- NOTE | 2023-01-25 04:45 | ED.EAR ---
HPI - Ear Problem General Chief complaint: Ear Problems Stated complaint: Earache Time Seen by Provider: 01/25/23 04:44 Source: patient Mode of arrival: ambulatory Limitations: no limitations History of Present Illness HPI Narrative: 32-year-old male came in for evaluation of left ear pain for few months. No fever, no chills, no sore throat, no loss of feeling, no ringing, no trauma, no discharge from the ear. Related Data Previous Rx's Medication Instructions Recorded loperamide 2 mg capsule (Imodium 2 mg PO Q6H PRN loose stool #10 05/29/22 A-D) caps ondansetron 4 mg disintegrating 4 mg PO Q6H PRN nausea and 05/29/22 tablet vomiting #14 tabs doxycycline hyclate 100 mg tablet 100 mg PO BID 7 days #14 tabs 06/27/22 azithromycin 250 mg tablet See Rx Instructions PO .COMPLEX #6 01/25/23 (Zithromax Z-Gilberto) tabs prednisone 20 mg tablet 20 mg PO BID #10 tabs 01/25/23 Allergies Allergy/AdvReac Type Severity Reaction Status Date / Time Penicillins [PENICILLINS] Allergy Unknown UNKNOWN Verified 12/29/22 20:21 Review of Systems Review of Systems: All other systems are reviewed and are negative Constitutional: Reports as per HPI and Reports no additional constitutional complaints Eyes: Reports as per HPI and Reports no additional eye complaints Reports system reviewed and no additional complaints, except as documented Cardiovascular: Reports as per HPI and Reports no additional cardiovascular complaints Respiratory: Reports as per HPI and Reports no additional respiratory complaints Gastrointestinal: Reports as per HPI and Reports no additional gastrointestinal complaints Genitourinary: Reports no additional female genitourinary complaints Musculoskeletal: Reports no additional musculoskeletal complaints Skin/Breast: Reports system reviewed and no additional complaints, except as docu Psychiatric: Reports no additional psychiatric complaints Endocrine: Reports no additional endocrine complaints Hematologic/Lymphatic: Reports no additional hematologic/lymphatic complaints Allergic/Immunologic: Reports no additional allergic/immunologic complaints Reports system reviewed and no additional complaints, except as documented and Reports Abnormal speech present [facility] Past Medical History Medical History Anxiety Social History Social History Alcohol intake: never Substance Use Type: Marijuana Advance Directives: No Advance Directives Information Provided: Yes Physical Exam Vital Signs: Vital Signs: Last Vital Signs Temp 98.7 F 01/25/23 04:40 Pulse 129 H 01/25/23 04:40 Resp 16 01/25/23 04:40 BP 125/78 01/25/23 04:40 Pulse Ox 99 01/25/23 04:40 O2 Del Method Room Air 01/25/23 04:40 BMI result Body Mass Index 23.2 Vital signs have been reviewed and appear to be correct. Blood pressure elevated. Heart rate normal. Respiratory rate normal. Temperature normal. Oxygen saturation normal. Appearance: Alert. Oriented X3. No acute distress. Head: Normal external exam. Normocephalic. Atraumatic. No Wells signs noted. No raccoon eyes noted Eyes: PERRLA. EOMI. Conjunctiva and sclera normal. Eyelids normal. ENT: left TM erythema with small fluid behind the left TM. Pharynx normal. Uvula midline. Moist mucous membranes. No trismus noted. No drooling noted. No muffled voice noted. Neck: Normal inspection. Neck supple. FROM. No adenopathy. Thyroid Normal. No meningeal signs. No neck mass noted. CVS: Normal heart rate and rhythm. Heart sound normal. No murmurs noted. Pulses normal throughout. Respiratory: No respiratory distress. Painless inspiration. Breath sounds normal. No wheezes/rales/rhonchi noted. Chest nontender. No accessory muscle usage noted or decreased air movement noted. Abdomen: Soft and nontender. Bowel sounds normal in all 4 quadrants. No distention noted. No organomegaly noted. No visible injury noted. Back: No CVA tenderness. Full range of motion noted. Skin: Skin warm and dry. Normal skin color. Normal skin turgor. No rashes/lesions/lacerations noted. Extremities: No lower extremity edema. Extremities exhibit normal range of motion. Extremities nontender. Neuro: Oriented X 3. Cranial nerve exam: II-XII are grossly intact No motor deficit. No sensory deficit. Reflexes normal. Course Reevaluation(s) Reevaluation #1: left serous otitis media. Start the patient on amoxicillin and NSAIDs. Patient incidentally found to be tachycardic in the emergency department EKG is showing sinus tachycardia at 120 beats per minute patient stated that he does not feel CP or palpitation or SOB patient does not want me to work him up for this incidental tachycardia I just need something for my ear and go home and I will follow up with my PCP, I think because I am anxious and being in the emergency department Time: 04:48 Medical Decision Making Differential Diagnosis Differential Diagnoses: The differential diagnosis associated with the presentation includes ( Otitis media, perforated eardrum, otitis externa) Admission/Observation Consideration of admission/observation: Escalation of care including admission/observation considered Discharge Plan Discharge Clinical Impression: Otitis media, Tachycardia Patient Disposition: Home, Self-Care Instructions: Ear Infection (ED) Prescriptions: New azithromycin [Zithromax Z-Gilberto] 250 mg tablet See Rx Instructions .ROUTE .COMPLEX Qty: 6 0RF Rx Instructions: For 250 mg dose pack: take 500 mg today (day 1), then 250 mg for 4 days (days 2-5) prednisone 20 mg tablet 20 mg PO BID Qty: 10 0RF No Action loperamide [Imodium A-D] 2 mg capsule 2 mg PO Q6H PRN (Reason: loose stool) Qty: 10 0RF Rx Instructions: maximum 4 tabs, 8 mg per day ondansetron 4 mg tablet,disintegrating 4 mg PO Q6H PRN (Reason: nausea and vomiting) Qty: 14 0RF doxycycline hyclate 100 mg tablet 100 mg PO BID 7 Days Qty: 14 0RF Stand Alone Forms: Work/School Release
[2023-01-25 05:35] VITALS: BP 120/71; PULSE 101; RESP 16; TEMP 36.7; O2SAT 98
== END 2023-01-25 05:37 | disposition home or self-care (01) ==
PROVIDERS: Emergency Provider Emergency Medicine
DX: R00.0 Tachycardia, unspecified (principal); H66.92 Otitis media, unspecified, left ear; H92.02 Otalgia, left ear
CPT/HCPCS: 93005; 99283; 99284

== ENCOUNTER 2023-01-30 20:53 | Emergency (ER) | payer OTHER, SELFPAY | END 2023-01-30 23:16 | disposition left against medical advice (07) | PROVIDERS: Emergency Provider Emergency Medicine | DX: H92.09 Otalgia, unspecified ear (principal) ==

== ENCOUNTER 2023-01-31 22:06 | Emergency (ER) | payer OTHER, SELFPAY ==
[2023-01-31 22:12] VITALS: BP 126/79; PULSE 107; RESP 18; TEMP 37.3; O2SAT 98; BMI 22.1
[2023-01-31 23:18] LABS: Influenza A PCR NEGATIVE (Negative); Influenza B PCR NEGATIVE (Negative); Resp Syncy Virus RNA Qual PCR NEGATIVE (Negative); SARS COV2 PCR INHOUSE NEGATIVE (Negative)
[2023-02-01 00:05] VITALS: BP 114/77; PULSE 100; RESP 19; TEMP 36.7; O2SAT 98
--- NOTE | 2023-02-01 00:23 | ED.GENADULT ---
HPI - General Adult General Chief complaint: Upper Respiratory Symptoms Stated complaint: flu like symptoms Time Seen by Provider: 02/01/23 00:16 Source: patient Mode of arrival: ambulatory Limitations: no limitations History of Present Illness HPI narrative: patient comes to the emergency room complaining of left-sided ear pain. Approximately a week ago, patient was diagnosed with otitis media on the left ear. Patient was giving azithromycin and has been taking it since then. Patient finished the course. Patient states that he does not feel any improvement and the ear pain is getting worse. patient complaining of headache, no neck pain or stiffness. No respiratory distress. Related Data Previous Rx's Medication Instructions Recorded loperamide 2 mg capsule (Imodium 2 mg PO Q6H PRN loose stool #10 05/29/22 A-D) caps ondansetron 4 mg disintegrating 4 mg PO Q6H PRN nausea and 05/29/22 tablet vomiting #14 tabs doxycycline hyclate 100 mg tablet 100 mg PO BID 7 days #14 tabs 06/27/22 azithromycin 250 mg tablet See Rx Instructions PO .COMPLEX #6 01/25/23 (Zithromax Z-Gilberto) tabs prednisone 20 mg tablet 20 mg PO BID #10 tabs 01/25/23 clindamycin HCl 150 mg capsule 150 mg PO TID 7 days #21 caps 02/01/23 ibuprofen 600 mg tablet 600 mg PO TID PRN fever or pain 02/01/23 #20 tabs Allergies Allergy/AdvReac Type Severity Reaction Status Date / Time Penicillins [PENICILLINS] Allergy Unknown UNKNOWN Verified 01/31/23 22:14 Review of Systems Review of Systems: Constitutional : No Weight loss, No Fever, No Chills, No Night Sweats, No Fatigue, No Malaise ENT/Mouth : No Hearing loss, Complaining of left-sided Ear Pain, No Nasal Congestion, No Sinus Pain, No Hoarseness, No sore throat, No Rhinorrhea, No Swallowing Difficulty Eyes: No Eye Pain, No Swelling, No Redness, No Foreign Body, No Discharge, No Vision Changes Cardiovascular : No Chest Pain, No SOB, No Dyspnea on Exertion, No Orthopnea, No Edema, No Palpitations Respiratory : No Cough, No Sputum, No Wheezing, No Smoke Exposure, No Dyspnea Gastrointestinal : No Nausea, No Vomiting, No Diarrhea, No Constipation, No abdominal Pain, No Hematochezia, No Melena Genitourinary : no irregular bleeding, No Dysuria, No Urinary Frequency, No Hematuria, No Urinary Incontinence, No Urgency, No Flank Pain, No Urinary Flow Changes, No Hesitancy Musculoskeletal : No joint pain, No Myalgias, No Joint Swelling Skin : No Skin Lesions, No rash Neuro : No Weakness, No Numbness, No Paresthesias, No Loss of Consciousness, No Dizziness, No Headache Psych : No Anxiety/Panic, No Depression, No SI/HI/AH/VH, No Social Issues, Heme/Lymph: No Bruising, No Bleeding,No Lymphadenopathy Endocrine : No Polyuria, No Polydipsia, No Temperature Intolerance [facility] Past Medical History Medical History Anxiety Social History Social History Alcohol intake: current Alcohol intake frequency: holidays/special occasions only Alcohol type: beer Substance Use Type: Marijuana Advance Directives: No Advance Directives Information Provided: No Physical Exam ED Vital Signs: Vital Signs - 24 hr 01/31/23 22:12 02/01/23 00:05 02/01/23 00:05 Temperature 99.1 F 98.0 F Pulse Rate 107 H 100 Respiratory Rate 18 19 Blood Pressure 126/79 114/77 Pulse Oximetry 98 98 Oxygen Delivery Method Room Air Room Air Room Air Oxygen Flow Rate 98 BMI result Body Mass Index 22.1 Const Other: Appearance: Alert. Oriented X3. No acute distress. Eyes: Pupils equal, round and reactive to light. ENT: Pharynx normal. left ear erythematous ear canal and tympanic membrane. Right ear within normal limits Neck: Normal inspection. Neck supple. No lymph nodes noted. No crepitus CVS: Normal heart rate and rhythm. Pulses normal. Normal S1 and S2 Respiratory: No respiratory distress. Breath sounds normal. No Wheezing. No rales Abdomen: Soft and nontender. No rigidity. No distention. Skin: Skin warm and dry. Normal skin color. Normal skin turgor. Extremities: No lower extremity edema. No Lacerations. No Rash Neuro: Oriented X 3. No motor deficit. No sensory deficit. Moving all extremities. No slurred speech. CN 2 through 12 grossly intact Psych: calm, cooperative, normal affect Medical Decision Making Medical Decision Making MDM Narrative: - my interpretation of labs: Negative for influenza RSV or COVID - I discussed the physical exam with the patient, patient still has otitis media. it is likely that the sacrum eyes and did not work with the patient. Patient allergic to penicillins. - Patient was given p.o. Motrin in the ED and the 1st dose of clindamycin. Differential Diagnosis Differential Diagnoses: The differential diagnosis associated with the presentation includes ( Otitis media, otitis externa, viral URI) Lab Data Labs: Lab Results 01/31/23 Range/Units 22:36 Influenza Type A (PCR) NEGATIVE (Negative) Influenza Type B (PCR) NEGATIVE (Negative) RSV RNA Qual (PCR) NEGATIVE (Negative) SARS-CoV-2 RNA (RT-PCR) NEGATIVE (Negative) Discharge Plan Discharge Clinical Impression: Otitis media Patient Disposition: Home, Self-Care Instructions: Ear Infection (ED) Additional Instructions: Please follow-up with your primary care physician tomorrow. If you have any worsening or new symptoms, please return to the emergency room or call 911 Prescriptions: New clindamycin HCl 150 mg capsule 150 mg PO TID 7 Days Qty: 21 0RF ibuprofen 600 mg tablet 600 mg PO TID PRN (Reason: fever or pain) Qty: 20 0RF No Action loperamide [Imodium A-D] 2 mg capsule 2 mg PO Q6H PRN (Reason: loose stool) Qty: 10 0RF Rx Instructions: maximum 4 tabs, 8 mg per day ondansetron 4 mg tablet,disintegrating 4 mg PO Q6H PRN (Reason: nausea and vomiting) Qty: 14 0RF doxycycline hyclate 100 mg tablet 100 mg PO BID 7 Days Qty: 14 0RF azithromycin [Zithromax Z-Gilberto] 250 mg tablet See Rx Instructions .ROUTE .COMPLEX Qty: 6 0RF Rx Instructions: For 250 mg dose pack: take 500 mg today (day 1), then 250 mg for 4 days (days 2-5) prednisone 20 mg tablet 20 mg PO BID Qty: 10 0RF
[2023-02-01] MEDS: Clindamycin HCL 300 MG CAPSULE PO (00:27)
[2023-02-01] MEDS: Ibuprofen 600 MG TABLET PO (00:27)
== END 2023-02-01 00:30 | disposition home or self-care (01) ==
PROVIDERS: Emergency Provider Emergency Medicine
DX: H92.02 Otalgia, left ear (principal); H66.92 Otitis media, unspecified, left ear; Z20.822 Contact with and (suspected) exposure to COVID-19; Z20.828 Contact with and (suspected) exposure to other viral communicable diseases; Z79.899 Other long term (current) drug therapy
CPT/HCPCS: 0241U; 99283; 99284

== ENCOUNTER 2023-02-10 00:17 | Emergency (ER) | payer OTHER, SELFPAY ==
[2023-02-10 00:18] VITALS: BP 142/86; PULSE 101; RESP 18; TEMP 36.8; O2SAT 99; BMI 22.1
--- NOTE | 2023-02-10 01:57 | PC.NURSE ---
pt not in room at this time and is not in the waiting room also at this time.
== END 2023-02-10 07:17 | disposition home or self-care (01) ==
PROVIDERS: Emergency Provider Emergency Medicine
DX: H92.02 Otalgia, left ear (principal)
CPT/HCPCS: 99282

== ENCOUNTER 2023-07-21 06:04 | Emergency (ER) | payer OTHER, SELFPAY ==
--- NOTE | 2023-07-21 06:17 | PC.NURSE ---
pt not in waiting room at this time 3 calls no answer and not in the bathroom.
== END 2023-07-21 07:15 | disposition left against medical advice (07) ==
LOC: HO.ED 07:12
PROVIDERS: Emergency Provider Emergency Medicine
DX: Z53.21 Procedure and treatment not carried out due to patient leaving prior to being seen by health care provider (principal); R51.9 Headache, unspecified

== ENCOUNTER 2025-01-07 20:39 | Emergency (ER) | payer OTHER, SELFPAY ==
--- OUTSIDE RECORDS SUMMARY | 2025-01-02 11:04 | XMS_ITS | Encounter Summary ---
Author Organization [facility] Address [address] [place] [address] Care Team Providers Care Chief Executive Name Role Phone Physician, Pcp Unknown Primary Care Provider Tia vailable Reason for Visit * Reason Comments Shortness of Breath Room air 02 sat 97% at fec, hr 127 Encounter Details Date Type Department Care Team (Late st Contact Info) Description 01/02/2025 11:04 AM EDT - 01/02/2025 4:22 PM EDT Emergency [facility] Emergency [address] [place] [address] Giancarlo Cope MD [address] [place] [address] Dystonia (Primary Dx); Cocaine use Discharge Disposition: Home or Self Care Social History Tobacco Use Types Packs/Day Years Used Date Smoking Tobacco: Some Days Cigarettes Smokeless Tobacco: Never Alcohol Use Standard Drinks/Week Comments Yes 0 (1 standard drink = 0.6 oz pur e alcohol) Sex and Gender Information Value Date Recorded Sex Assigned at Male 06/26/2024 11:32 PM EDT Legal Sex Male 7:34 PM EST Gender Identity Male 06/26/2024 11:32 PM EDT Sexual Orientation Straight 06/26/2024 11 :32 PM EDT documented as of this encounter Last Filed Vital Signs Vital Sign Reading Time Taken Comments Blood Pressure 123/77 01/02/2025 1:07 PM EDT Pulse 98 01/02/2025 3:59 PM EDT Temperature 36.8 C (98.2 F) 01/02/2025 1:07 PM EDT Respiratory Rate 16 01/02/2025 3:59 PM EDT Oxygen Saturation 100% 01/02/2025 1:07 PM EDT Inhaled Oxygen Concentration - - Weight 81.6 kg (180 lb) 01/02/2025 11:17 AM EDT Height 170.7 cm (5' 7.2 ) 01/02/2025 11:17 AM ED T Body Mass Index 28.02 01/02/2025 11:17 AM EDT documented in this encounter Discharge Disposition Disposition Code Departure Means Destination Comment s Home or Self Care documented in this encounter Progress Notes * Skip Palmer RN - 01/02/2025 4:22 PM EDT Pt seen and cleared for d/c by ED provider, d/c instructions reviewed. Rx'd medication education provided, all questions answered. IV removed. Pt seen ambulating out of department with a steady gait. * Marilyn Harrison DO - 01/02/2025 4:22 PM EDT Patient presented to ED with symptoms in setting of cocaine use. Addiction consult requested to provide packet of resources to patient. Patient states he would indeed like to go home. Was provided with fentanyl test strips and a packetof resources with community and recovery supports. Recommend discharge with Narcan Rx. Marilyn Harrison DO * Rhiannon Diamond RN - 01/02/2025 11:02 AM EDT Pt presents to ed co shortness of breath, chest pain, muscle spasms, since this am. Pt states he used cocaine lastnight. * Giancarlo Cope MD - 01/02/2025 11:00 AM EDT HPI Chief Complaint Patient presents with Shortness of Breath Room air 02 sat 97% at fec, hr 127 34-year-old male with a past medical history of cocaine use presenting with dystonic reaction. Patient endorses symptoms starting yesterday, however has been worsening. Patient endorses stiffness of the neck, and bilateral upper extremities. Patient also endorses tightness of the jaw, associated with difficulty breathing. Patient states his symptoms started yesterday, however thought that they would resolve on its own. He endorses pain and discomfort. On arrival, patient notable to have tachycardia, normal oxygen saturation, and hypertensive. Patient was afebrile. On passive motion of hands and neck, patient had full range of motion. Patient denies any recent fever, chills, urinary or bowelsymptoms, IV drug use, back pain, or numbness or weakness in the upper and lower extremities. Review of system otherwise negative. Sarah Coma Scale Score: 15 Patient History Medical History[1] Surgical History[2] Family History[3] Social History Tobacco Use Smoking status: Some Days Types: Cigarettes Smokeless tobacco: Never Substance Use Topics Alcohol use: Yes Drug use: Yes Types: Cocaine Review of Systems Review of Systems Constitutional: Negative for chills and fever. HENT: Negative for rhinorrhea and sore throat. Eyes: Negative for pain. Respiratory: Negative for cough, choking, chest tightness, shortness of breath and wheezing. Cardiovascular: Negative for chest pain and leg swelling. Gastrointestinal: Negative for abdominal pain, constipation, diarrhea, nausea and vomiting. Genitourinary: Negative for dysuria, flank pain and urgency. Musculoskeletal: Negative for back pain and neck pain. Skin: Negative for rash. Neurological: Negative for dizziness, weakness, light-headedness, numbness and headaches. Psychiatric/Behavioral: Negative for behavioral problems. Physical Exam ED Triage Vitals Temp Heart Rate Resp BP 01/02/25 1307 01/02/25 1128 01/02/25 1128 01/02/25 1128 36.8 ??C (98.2 ??F) 85 16 136/84 SpO2 Temp src Heart Rate Source Patient Position 01/02/25 1128 -- -- 01/02/25 1128 100 % Lying BP Location FiO2 (%) -- -- Physical Exam Constitutional: Appearance: Normal appearance. HENT: Head: Normocephalic. Mouth/Throat: Mouth: Mucous membranes are moist. Comments: Tongue curling. Eyes: Extraocular Movements: Extraocular movements intact. Pupils: Pupils are equal, round, and reactive to light. Cardiovascular: Rate and Rhythm: Normal rate. Pulmonary: Effort: Pulmonary effort is normal. Breath sounds: Normal breath sounds. Abdominal: General: Abdomen is flat. There is no distension. Palpations: Abdomen is soft. There is no mass. Tenderness: There is no abdominal tenderness. There is no guarding or rebound. Musculoskeletal: General: No swelling, tenderness, deformity or signs of injury. Normal range of motion. Cervical back: Normal range of motion. Comments: Patient with stiffness of neck, and upper bilateral extremities. When passively moved, nopain however retained stiff position. Skin: General: Skin is warm. Capillary Refill: Capillary refill takes less than 2 seconds. Neurological: General: No focal deficit present. Mental Status: He is alert and oriented to person, place, and time. Psychiatric: Mood and Affect: Mood normal. ED Course & [facility] ED Course as of 01/03/25 1146 [facility] Jan 02, 2025 1139 Patient in no acute distress. - now sleeping comfortably. Full ROM of all upper and lower extremities. [OR] 1437 Patient remains medically stable, resting comfortably. [OR] 1530 Patient endorses feeling better, vitals remain stable. Patient provided [employer] by family members, and tolerated appropriately. Spoke with family, and will have crisis speak with patient. [OR] 1553 Patient declining to be speak sent to facility and would prefer to be discharged. I spoke withAddiction who will provide resources, I will also provide patient with Narcan for discharge. [OR] 1559 Dr. Harrison at the bedside to meet with patient. Patient declining liter of fluids, and wants togo home. With shared decision making, plan for discharge, patient provided with strict return precautions. [OR] ED Course User Index [OR] Giancarlo Cope MD Clinical Impressions as of 01/03/25 1146 Dystonia Cocaine use Medical Decision Making Based on this clinical presentation, this is concerning for dystonic reaction. Patient does endorsea history of drug use, however unclear exactly. Patient provided with IV Benadryl, and IV Ativan, which improved muscle spasms. Patient also improved clinically, with improvement in blood pressure and heart rate. Patient currently resting comfortably, however did wake up to ask for food, which he tolerated appropriately. CBC with mild leukocytosis 11.2, however patient denied any recent fever, chills, cough, abdominal pain, urinary or bowel symptoms. No concern for cardiac pathology, low risk factors, patient denies chest pain at this time. Low concern for meningitis at this time, patient has full range of motion at the neck, denies any neck pain at this time, and no meningeal signs and symptoms. Vitals also stable. CMP within normal limits. CK within normal limits. Troponin negative. Chest x-ray pending. Initial EKG notable for sinus tachycardia. Procedures Giancarlo Cope MD 01/02/25 6600 [1] History reviewed. No pertinent past medical history. [2] History reviewed. No pertinent surgical history. [3] No family history on file. Giancarlo Cope MD 01/03/25 1147 documented in this encounter Plan of Treatment Not on file documented as of this encounter Procedures Procedure Name Priority Date/Time Associated Diagnosis Comments XR CHEST 1 VIEW STAT 01/02/2025 1:54 PM EDT TROPONIN I HIGH SENSITIVITY STAT 01/02/2025 11:19 AM EDT CBC WITH AUTO DIFFERENTIAL STAT 01/02/2025 11:19 AM EDT CBC AND DIFFERENTIAL STAT 01/02/2025 11:19 AM EDT MAGNESIUM STAT Add-on 01/02/2025 11:19 AM EDT LIPASE STAT 01/02/2025 11:19 AM EDT CREATINE KINASE AND CKMB STAT 01/02/2025 11:19 AM EDT COMPREHENSIVE METABOLIC PANEL STAT 01/02/2025 11:19 AM EDT ECG 12-LEAD STAT 01/02/2025 11:12 AM EDT documented in this encounter Results * XR Chest 1 View (01/02/2025 1:54 PM EDT) Anatomical Region Laterality Modality Body Radiographic Liz ging 01/02/2025 2:18 PM EDT Impressions 01/02/2025 2:19 PM EDT FINDINGS/IMPRESSION: Vascular crowding/atelectasis at the right base. No consolidation or effusion. No congestive heart failure. Normal heart size. No acute osseous abnormality. -------- FINAL REPORT -------- Dictated By: Regina Chambers Dictated Date: 01/02/2025 14:18 ET Assigned Physician: Regina Chambers Reviewed and Electronically Signed By: Regina Chambers Signed Date: 01/02/2025 14:19 ET Workstation ID: [id number] Transcribed By: Self Edit Transcribed Date: 01/02/2025 14:18 ET Narrative 01/02/2025 2:19 PM EDT XR CHEST 1 VIEW INDICATION: chest pain portable TECHNIQUE: XR CHEST 1 VIEW COMPARISON: None Procedure Note Regina Chambers MD - 01/02/2025 XR CHEST 1 VIEW INDICATION: chest pain portable TECHNIQUE: XR CHEST 1 VIEW COMPARISON: None IMPRESSION: FINDINGS/IMPRESSION: Vascular crowding/atelectasis at the right base. Noconsolidation or effusion. No congestive heart failure. Normal heartsize. No acute osseous abnormality. -------- FINAL REPORT -------- Dictated By: Regina Chambers Dictated Date: 01/02/2025 14:18 ET Assigned Physician: Regina Chambers Reviewed and Electronically Signed By: Regina Chambers Signed Date: 01/02/2025 14:19 ET Workstation ID: [id number] Transcribed By: Self Edit Transcribed Date: 01/02/2025 14:18 ET us Giancarlo Cope MD IMG XR PROCEDURES Final Re sult * Magnesium (01/02/2025 11:19 AM EDT) Magnesium 2.0 1.9 - 2.6 mg/dL LAB CHEMISTRY METHOD 01/02/2025 12:45 PM EDT [facility] Blood Venous blood specimen / Unknown Venipuncture / Unknown 01/02/2025 11:19 AM EDT 01/02/2025 12:04 PM EDT Giancarlo Cope MD LAB BLOOD ORDERABLES Final Result [facility] [address] [place] [address], * (ABNORMAL) CBC auto differential (01/02/2025 11:19 AM EDT) WBC 11.2(H) 4.8 - 10.8 K/mcL LAB HEMETOLOGY METHOD 01/02/2025 12:24 PM EDT [facility] RBC 5.30 4.50 - 5.50 M/mcL LAB HEMETOLOGY METHOD 01/02/2025 12:24 PM EDT [facility] Hemoglobin 17.1 13.5 - 17.5 g/dL LAB HEMETOLOGY METHOD 01/02/2025 12:24 PM EDT [facility] Hematocrit 48.0 42.0 - 54.0 % LAB HEMETOLOGY METHOD 01/02/2025 12:24 PM EDT [facility] MCV 90.1 79.0 - 98.0 FL LAB HEMETOLOGY METHOD 01/02/2025 12:24 PM EDT [facility] MCH 32.1(H) 27.0 - 32.0 pcg LAB HEMETOLOGY METHOD 01/02/2025 12:24 PM EDT [facility] MCHC 35.6 32.0 - 37.0 g/dL LAB HEMETOLOGY METHOD 01/02/2025 12:24 PM EDT [facility] RDW 12.7 11.0 - 15.0 % LAB HEMETOLOGY METHOD 01/02/2025 12:24 PM EDT [facility] Platelets 324 130 - 400 K/mcL LAB HEMETOLOGY METHOD 01/02/2025 12:24 PM EDT [facility] MPV 12.4(H) 7.0 - 11.0 FL LAB HEMETOLOGY METHOD 01/02/2025 12:24 PM EDT [facility] NRBC 0.0 <1.0 % [facility] NR[facility] Absolute 0.00 <0.10 K/mcL LAB HEMETOLOGY METHOD 01/02/2025 12:24 PM [facility] Neutrophils Relative 74.4 % LAB HEMETOLOGY METHOD 01/02/2025 12:24 PM [facility] Lymphocytes Relative 18.2 % LAB HEMETOLOGY METHOD 01/02/2025 12:24 PM T [facility] Monocytes Relative 6.4 % LAB HEMETOLOGY METHOD 01/02/2025 12:24 PM [facility] Eosinophils Relative 0.3 % LAB HEMETOLOGY METHOD 01/02/2025 12:24 PM [facility] Basophils Relative 0.3 % LAB HEMETOLOGY METHOD 01/02/2025 12:24 PM [facility] Immature Granulocytes Relative 0.4 % LAB HEMETOLOGY METHOD 01/02/2025 12:24 PM [facility] Neutrophils Absolute 8.34(H) 1.50 - 7.00 K/mcL LAB HEMETOLOGY METHOD 01/02/2025 12:24 PM [facility] Lymphocytes Absolute 2.04 1.00 - 5.00 K/mcL LAB HEMETOLOGY METHOD 01/02/2025 12:24 PM T [facility] Monocytes Absolute 0.72 0.20 - 1.00 K/mcL LAB HEMETOLOGY METHOD 01/02/2025 12:24 PM [facility] Eosinophils Absolute 0.03 0.00 - 0.50 K/mcL LAB HEMETOLOGY METHOD 01/02/2025 12:24 PM T [facility] Basophils Absolute 0.03 0.00 - 0.20 K/mcL LAB HEMETOLOGY METHOD 01/02/2025 12:24 PM EDT [facility] Immature Granulocytes Absolute 0.04(H) 0.00 - 0.03 K/mcL LAB HEMETOLOGY METHOD 01/02/2025 12:24 PM EDT [facility] Blood Venous blood specimen / Unknown Venipuncture / Unknown 01/02/2025 11:19 AM EDT 01/02/2025 12:04 PM EDT us Giancarlo Cope MD LAB BLOOD ORDERABLES Final Result Performing Organization Address City/[facility]/ZIP Co de Phone Number [facility] [address] [place] [address], [place] [phone] * (ABNORMAL) CK total and CKMB (01/02/2025 11:19 AM EDT) Total CK 127 22 - 269 unit/L LAB CHEMISTRY METHOD 01/02/2025 1:01 PM EDT [facility] CK-MB <1.0(L) 1.0 - 3.6 ng/mL LAB CHEMISTRY METHOD 01/02/2025 1:01 PM EDT [facility] CK-MB Index <0.0(L) 0.0 - 5.0 LAB CHEMISTRY METHOD 01/02/2025 1:01 PM EDT [facility] Blood Venous blood specimen / Unknown Venipuncture / Unknown 01/02/2025 11:19 AM EDT 01/02/2025 12:04 PM EDT us Giancarlo Cope MD LAB BLOOD ORDERABLES Final Result [facility] [address] [place] [address], [place] [phone] * Troponin I high sensitivity (01/02/2025 11:19 AM EDT) [facility] High Sensitivity Troponin I <3 <=79 ng/L LAB CHEMISTRY METHOD 01/02/2025 12:41 PM EDT [facility] Blood Venous blood specimen / Unknown Venipuncture / Unknown 01/02/2025 11:19 AM EDT 01/02/2025 12:04 PM EDT Narrative [facility] - 01/02/2025 12:41 PM EDT High levels of biotin in samples may falsely decrease hsTroponin values. Use caution when interpreting hsTroponin results in patients taking biotin who exhibit renal impairment (eGFR <60) or in patients taking more than 20 mg/day of biotin. us Giancarlo Cope MD LAB BLOOD ORDERABLES Final Result Performing Organization Address [facility]/ZIP Co de Phone Number [facility] [address] [place] [address], [place] [phone] * Lipase (01/02/2025 11:19 AM EDT) [facility] Lipase 45 13 - 75 unit/L LAB CHEMISTRY METHOD 01/02/2025 12:45 PM EDT [facility] Blood Venous blood specimen / Unknown Venipuncture / Unknown 01/02/2025 11:19 AM EDT 01/02/2025 12:04 PM EDT us Giancarlo Cope MD LAB BLOOD ORDERABLES Final Result [facility] [address] [place] [address], [place] [phone] * (ABNORMAL) Comprehensive Metabolic Panel (CMP) (01/02/2025 11:19 AM EDT) [facility] Sodium 137 133 - 145 mmol/L LAB CHEMISTRY METHOD 01/02/2025 1:01 PM EDT [facility] Potassium 3.9 3.5 - 5.5 mmol/L LAB CHEMISTRY METHOD 01/02/2025 1:01 PM [facility] Chloride 105 96 - 110 mmol/L LAB CHEMISTRY METHOD 01/02/2025 1:01 PM [facility] CO2 24 21 - 32 mmol/L LAB CHEMISTRY METHOD 01/02/2025 1:01 PM [facility] Anion Gap 8 3 - 11 LAB CHEMISTRY METHOD 01/02/2025 1:01 PM [facility] Glucose 125(H) 70 - 100 mg/dL LAB CHEMISTRY METHOD 01/02/2025 1:01 PM [facility] BUN 11 5 - 25 mg/dL LAB CHEMISTRY METHOD 01/02/2025 1:01 PM [facility] Creatinine 1.11 0.70 - 1.30 mg/dL LAB CHEMISTRY METHOD 01/02/2025 1:01 PM [facility] eGFR 88 >=60 mL/min/1. 73m2 LAB CHEMISTRY METHOD 01/02/2025 1:01 PM [facility] Comment:Calculation based on the Chronic Kidney Disease Epidemiology Collaboration (CKD-EPI) equation refit without adjustment for race. BUN/Creatinine Ratio 9.9 LAB CHEMISTRY METHOD 01/02/2025 1:01 PM [facility] Calcium 10.0 8.5 - 10.5 mg/dL LAB CHEMISTRY METHOD 01/02/2025 1:01 [facility] AST (SGOT) 19 10 - 42 unit/L LAB CHEMISTRY METHOD 01/02/2025 1:01 [facility] ALT (SGPT) 52 10 - 60 unit/L LAB CHEMISTRY METHOD 01/02/2025 1:01 PM [facility] Alkaline Phosphatase 99 42 - 121 unit/L LAB CHEMISTRY METHOD 01/02/2025 1:01 PM [facility] Total Protein 7.9 6.0 - 8.0 g/dL LAB CHEMISTRY METHOD 01/02/2025 1:01 PM EDT [facility] Albumin 4.2 3.2 - 5.0 g/dL LAB CHEMISTRY METHOD 01/02/2025 1:01 PM EDT [facility] Total Bilirubin 0.6 0.0 - 1.4 mg/dL LAB CHEMISTRY METHOD 01/02/2025 1:01 PM EDT [facility] Blood Venous blood specimen / Unknown Venipuncture / Unknown 01/02/2025 11:19 AM EDT 01/02/2025 12:04 PM EDT us Giancarlo Cope MD LAB BLOOD ORDERABLES Final Result Performing Organization Address [facility]/ZIP Co de Phone Number [facility] [address] [place] [address], [place] [phone] * 12-Lead ECG (01/02/2025 11:12 AM EDT) Ventricular Rate ECG 118 BPM GEMUSE Atrial Rate 118 BPM GEMUSE P-R Interval 114 ms GEMUSE QRS Duration 82 ms GEMUSE Q-T Interval 346 ms GEMUSE QTc 484 ms GEMUSE P Wave [place] 82 degrees GEMUSE R [place] 61 degrees GEMUSE T [place] 68 degrees GEMUSE ECG Interpretation Sinus tachycardia Nonspecific ST abnormality Abnormal ECG When compared with ECG of 02-DEC-2023 16:10, Vent. rate has increased BY 68 BPM T wave amplitude has decreased in Lateral leads Confirmed by MD Cecil, Shreyas ([id number]) on 01/02/2025 9:15:45 PM GEMUSE 01/02/2025 11:1 2 AM EDT 01/02/2025 9:15 PM EDT us Giancarlo Cope MD ECG ORDERABLES Final Resu lt Performing Organization Address City/[facility]/ZIP Co de Phone Number GEMUSE documented in this encounter Visit Diagnoses Diagnosis Dystonia- Primary Abnormal involuntary movements Cocaine use documented in this encounter Administered Medications Inactive Administered Medications - up to 3 most recent administrations Medication Order MAR Action Action Date Dose Rate Site diphenhydrAMINE (BENADRYL) 50 mg/mL injection - ADS Override Pull Starting on Wed01/02/25 at 1111, For 1 dose, Created by cabinet override diphenhydrAMINE (BENADRYL) injection 50 mg 50 mg, intravenous, Once, On Wed01/02/25 at 1125, For 1 dose Given 01/02/2025 11:27 AM EDT 50 mg LORazepam (ATIVAN) 2 mg/mL injection - ADS Override Pull Starting on Wed01/02/25 at 1111, For 1 dose, Created by cabinet override Prior to IV use, lorazepam injection should be DILUTED with an equal volume of compatible solution; Rate of administration should NOT exceed 2 mg/min. LORazepam (ATIVAN) injection 2 mg 2 mg, intravenous, Once, On Wed01/02/25 at 1125, For 1 dose, Prior to IV use, lorazepam injection should be DILUTED with an equal volume of compatible solution; Rate of administration should NOT exceed 2 mg/min. Given 01/02/2025 11:26 AM EDT 2 mg documented in this encounter Active and Recently Administered Medications Times are shown in EDT. Scheduled Medication Order 12/31/2024 01/01/2025 01/02/2025 diphenhydrAMINE (BENADRYL) injection 50 mg (COMPLETED) 50 mg, intravenous, Once, On Wed01/02/25 at 1125, For 1 dose 1127 (Given - Provid er: Corrine Andrade RN) LORazepam (ATIVAN) injection 2 mg (COMPLETED) 2 mg, intravenous, Once, On Wed01/02/25 at 1125, For 1 dose, Prior to IV use, lorazepam injection should be DILUTED with an equal volume of compatible solution; Rate of administration should NOT exceed 2 mg/min. 1126 (Given - Provid er: Corrine Andrade RN) naloxone (NARCAN) 4 mg/actuation nasal spray KIT (Take home med ONLY) 1 kit 1 kit, miscellaneous, See admin instructions, Starting on Wed01/02/25 at 1613, For 1 dose, Dispense kit to patient to take home sodium chloride 0.9 % bolus 1,000 mL 1,000 mL, intravenous, at 1,000 mL/hr, Administer over 1 Hours, Once, On Wed01/02/25 at 1535, For 1 dose 1607 (Not Given - Pr ovider: Skip Palmer RN - Reason: Patient/Resident/Agent refused - education provided ) documented in this encounter Orders Medications Ordered That Edmund ht Not Have Been Administered Count Last Ordered Date First Ordered Date diphenhydrAMINE (BENADRYL) injection 25 mg 2 01/02/2025 LORazepam (ATIVAN) injection 1 mg 2 025 naloxone (NARCAN) 4 mg/actua tion nasal spray KIT (Take home med ONLY) 1 kit 1 01/02/2025 naloxone (NARCAN) nasal spray 4 mg 1 2024 sodium chloride 0.9 % bolus 1,000 mL 1 12/14 documented in this encounter Care Teams Chief Executive Relationship Specialty Start Date End Date Physician, Pcp Unknown PCP - General 06/26/24 01/02/25 documented as of this encounter
--- OUTSIDE RECORDS SUMMARY | 2025-01-03 11:44 | XMS_ITS | Encounter Summary ---
Author Organization [facility] Address [address] [place] [address] Care Team Providers Care Patrol Conductor Name Role Phone Physician, No Pcp Primary Care Provider Unavaila ble Reason for Visit * Reason Comments Shortness of Breath Feels SOB. Here yest erday for same. Was treated for dystonic reaction. Encounter Details Date Type Department Care Team (Late st Contact Info) Description 01/03/2025 11:44 AM EDT - 01/03/2025 2:[address] [facility] Emergency [address] [place] [phone] Iona Hughes MD [address] [place] [address] Substance use (Primary Dx) Discharge Disposition: Home [...] 11:33 AM EDT Talib Chavira RN * [place] Suicide Severity Rating Scale (Screener/Recent Self-Report) Question [...] is also reporting chest pain. Patient is Welsh-speaking, in person science interpreter used forduration of encounter. Patient father is [...] or sensory deficits. No further complaints offered. [place] Coma Scale Score: 15 Patient History Medical [...] precautions placed. Procedures Iona Hughes MD 01/03/25 7233 [1] History reviewed. No pertinent past medical history. [2] History reviewed. No pertinent surgical history. [3] No family history on file. Iona Hughes MD 01/03/25 7803 documented in this encounter Plan of Treatment [...] ECG 12 lead (01/03/2025 12:38 PM EDT) [facility] Ventricular Rate ECG 80 BPM GEMUSE Atrial Rate 80 BPM GEMUSE P-R Interval 124 ms GEMUSE QRS Duration 88 ms GEMUSE Q-T Interval 408 ms GEMUSE QTc 470 ms GEMUSE P Wave [place] 60 degrees GEMUSE R [place] 32 degrees GEMUSE T [place] 47 degrees GEMUSE ECG Interpretation Normal sinus rhythm Normal ECG When compared with ECG of 02-JAN-2025 11:12, No significant change was found Confirmed by Keon LEVI JOHN ([id number]) on 01/03/2025 7:33:21 PM GEMUSE 01/03/2025 12:3 8 PM EDT 01/03/2025 7:33 PM EDT Iona Hughes MD ECG ORDERABLES Final Result Performing Organization Address [facility] Co de Phone Number GEMUSE * Troponin I high sensitivity (01/03/2025 12:27 PM EDT) [facility] High Sensitivity Troponin I <3 <=79 ng/L LAB CHEMISTRY METHOD 01/03/2025 1:57 PM EDT [facility] Blood Venous blood specimen / Unknown Venipuncture / Unknown 01/03/2025 12:27 PM EDT 01/03/2025 1:24 PM EDT Narrative [facility] - 01/03/2025 1:57 PM EDT High levels of biotin in samples may falsely decrease hsTroponin values. Use caution when interpreting hsTroponin results in patients taking biotin who exhibit renal impairment (eGFR <60) or in patients taking more than 20 mg/day of biotin. us Iona Hughes MD LAB BLOOD ORDERABLES Final R esult Performing Organization Address City/[facility]/ZIP Co de Phone Number [facility] [address] [place] [address], * D-dimer, quantitative (01/03/2025 12:27 PM EDT) D-Dimer, Quant (D-DU) <150 <=230 ng/mL DDU LAB COAGULATION METHOD 01/03/2025 1:44 PM EDT [facility] Blood Venous blood specimen / Unknown Venipuncture / Unknown 01/03/2025 12:27 PM EDT 01/03/2025 1:24 PM EDT Narrative [facility] - 01/03/2025 1:44 PM EDT D-Dimer <230 ng/mL (D-Dimer units) is the threshold for exclusion of DVT/PE. D-Dimer may be elevated in: Critically ill, severely infected, trauma patients, DIC, acute CVA, acute [place], unstable angina, AF, old age, , and smoking. D-Dimer may be decreased with: Initiation of heparin therapy and oral anticoagulants. us Iona Hughes MD LAB BLOOD ORDERABLES Final R esult [facility] [address] [place] [address], documented in this encounter Visit Diagnoses Diagnosis [...] RN) documented in this encounter Care Teams Patrol Conductor Relationship Specialty Start Date End Date Physician, No Pcp PCP - General 01/03/25 documented as of this encounter
[2025-01-07 20:41] VITALS: BP 111/70; PULSE 80; RESP 16; TEMP 36.3; O2SAT 98; BMI 25.1
--- NOTE | 2025-01-07 20:45 | ED.GENADULT ---
HPI - General Adult General Chief complaint: General Medical Stated complaint: seizure? Drooling moving slow Time Seen by Provider: 01/07/25 21:06 Source: patient and family Mode of arrival: ambulatory Limitations: altered mental status History of Present Illness ED Provider: Dr. Ivy Ramirez HPI narrative: 34-year-old male with history of bipolar disorder, substance use disorder presenting with altered mental status from home. Patient is unable to give much of a history. His girlfriend reports that he have an overdose on what he thought was cocaine but turned out to be an opiate. This happened about a week ago and he was taken to another emergency department. Evidently discharge once he was more sober however, once he got home, he has been altered since. Girlfriend states that he went back to the emergency department and everything again looked normal. It was thought his change in mental status was due to substance use. Patient states that he has not used any substances since he was discharged from the hospital after his original overdose over 6 days ago. His girlfriend reports sluggish responses, slurring of his speech, drooling, global weakness and difficulty ambulating. Patient describes muscle aches and pains but denies any focal tenderness. Denies chest pain, abdominal pain, shortness of breath, nausea or vomiting. Denies headache or vision changes. No exposures to any rapid animals or potentially rapid animals. No tick bites. Had been feeling well prior to the overdose a week ago. Related Data Previous Rx's ?Medication ?Instructions ?Recorded loperamide 2 mg capsule (Imodium 2 mg PO Q6H PRN loose stool #10 05/29/22 A-D) caps ondansetron 4 mg disintegrating 4 mg PO Q6H PRN nausea and 05/29/22 tablet vomiting #14 tabs doxycycline hyclate 100 mg tablet 100 mg PO BID 7 days #14 tabs 06/27/22 azithromycin 250 mg tablet See Rx Instructions PO .COMPLEX #6 01/25/23 (Zithromax Z-Gilberto) tabs prednisone 20 mg tablet 20 mg PO BID #10 tabs 01/25/23 clindamycin HCl 150 mg capsule 150 mg PO TID 7 days #21 caps 02/01/23 ibuprofen 600 mg tablet 600 mg PO TID PRN fever or pain 02/01/23 #20 tabs benztropine 1 mg tablet 1 mg PO BID #20 tabs 01/08/25 methocarbamol 500 mg tablet 1,000 mg (2 x 500 mg) PO QID #20 01/08/25 tabs Allergies Allergy/AdvReac Type Severity Reaction Status Date / Time Penicillins (PENICILLINS) Allergy Unknown UNKNOWN Verified 01/08/25 17:42 Review of Systems Review of Systems: as per HPI, full review of systems performed and negative but for the above mentioned pertinent positives and negatives. [facility] Past Medical History Medical History Anxiety Social History Social History Alcohol intake: current Alcohol intake frequency: holidays/special occasions only Alcohol type: beer Substance Use Type: Crack/Cocaine Advance Directives: No Advance Directives Information Provided: No Physical Exam ED Exam Exam: GENERAL: Appears intoxicated, GCS 13, eyes open to voice, slurred speech, no acute distress. SKIN: Normal skin color for ethnicity, warm, dry, no rashes noted. HEENT: Normocephalic, atraumatic, no stridor, posterior oropharynx nonerythematous, dentition intact, EOMI, pupils are pinpoint bilaterally, reactive to light. NECK: Soft, supple, no step-offs, no deformities, no lymphadenopathy. CHEST: Heart regular tachycardia, no murmurs, symmetric chest rise and fall. PULMONARY: Clear to auscultation bilaterally, diminished at the bases, no labored breathing, no wheezes/rhales/rhonchi. ABDOMINAL: Soft, nondistended, positive bowel sounds in all quadrants. : Deferred. MUSCULOSKELETAL: Normal tone, full range of motion, no deformities, no peripheral edema. NEURO: GCS 13, eyes open to voice, slightly slurred speech, CN II through XII intact, equal strength and sensation bilateral upper and lower extremities, no focal neurologic deficits. PSYCHIATRIC: Flat affect, poor eye contact. Vital Signs: Vital Signs - 24 hr 01/07/25 20:41 Temperature 97.4 F Pulse Rate 80 Respiratory Rate 16 Blood Pressure 111/70 Pulse Oximetry 98 Oxygen Delivery Method Room Air BMI result Body Mass Index 25.1 Course Course Course Narrative: Yue Sandoval OTORHINOLARYNGOLOGIST 01/08 2048 This is a rapid medical exam. Defer additional HPI, ROS, PE to primary provider. 34 yo male with history of bipolar disorder, polysubstance use presents to the ER with change in mental status. Per girlfriend the patient had an overdose on Wednesday and was seen at [facility] ER and held for 4 hours. He was discharged home. The next day she noticed he was short of breath, acting strangely and very weak. They brought him back to [facility] ER and this was though to be substance related. Since being home he has continued to be slow to respond, diffusely weak and complaining of total body pain/muscle soreness. He denies current substance use but the girlfriend is unsure. Will obtain labs, [facility] Medications Administered Discontinued Medications Generic Name Dose Route Start Last Admin Trade Name Freq PRN Reason Stop Dose Admin Sodium Chloride 1,000 mls @ 999 mls/hr 01/07/25 23:00 01/08/25 00:20 Ns IV 01/08/25 00:00 Infused .Q1H1M AVILA Infusion Naloxone HCl 8 mg 01/08/25 00:07 01/08/25 00:19 Naloxone Hcl Nasal Take Home 4 Mg Drexel NOSTRILALT 01/08/25 00:08 8 mg ONCE ONE Administration Medical Decision Making Medical Decision Making MDM Narrative: Patient presents today with a chief complaint of altered mental status. Differential diagnosis for AMS is incredibly broad and includes infection, intracranial process such as hemorrhage, stroke or mass, electrolyte abnormality, hypercarbia, hypoxia, toxic encephalopathy, among many others. Broad-based workup was initiated to further evaluate the etiology of patient's symptoms based on the above exam and history. Patient's workup today has been reassuring. No evidence of significant lab abnormality, focal abnormality in his neurologic exam. There is no indication for CT of the brain given his nonfocal neurologic deficits and an injury that may have happened a week ago. Certainly an anoxic brain injury could have happened during his overdose and episode of unresponsiveness however, he has no focal neurologic deficits on today's exam and appears more intoxicated than anything. Suspect sedative hypnotic use as patient has a history of Klonopin use. He is not prescribed any benzodiazepines though. Patient is refusing to give a urine sample. States that he wants to leave. His girlfriend is very anxious about him leaving the emergency department however, now that he is more alert and oriented, he has capacity to make decisions. He is ambulatory in the emergency department with a steady gait. Speech is clear. I feel he has capacity to refuse care. Discussed red flags and return precautions at length with patient and his girlfriend. Discharged home in stable condition. Differential Diagnosis Differential Diagnoses: The differential diagnosis associated with the presentation includes (As above) Admission/Observation Consideration of admission/observation: Escalation of care including admission/observation considered Lab Data [facility] Lab Attestation statement: I reviewed the patient's lab results. 01/07/25 21:03 01/07/25 21:03 Labs: Lab Results 01/07/25 Range/Units 21:03 WBC 8.4 (4.8-10.8) X10*3/uL RBC 5.03 (4.60-5.80) X10*6/uL Hgb 15.9 (14.0-18.0) g/dl Hct 45.7 (42.0-52.0) % MCV 90.9 (80.0-98.0) fL MCH 31.6 (27.0-33.0) pg MCHC 34.8 (31.0-36.0) g/dl RDW 12.7 (11.0-16.0) % Plt Count 294 (160-400) X10*3/uL MPV 11.7 (9.4-12.4) fL Immature Gran % (Auto) 0.4 (0.0-0.4) % Neut % (Auto) 54.8 (45-73) % Lymph % (Auto) 35.4 (20-40) % [place]y % (Auto) 7.1 (2-11) % Eos % (Auto) 1.3 (0-4) % Baso % (Auto) 1.0 (0-2) % Lymph # (Auto) 3.0 (1.2-4.9) X10*3/uL [place]enedy # (Auto) 0.6 (0.1-1.2) X10*3/uL Eos # (Auto) 0.1 (0.0-0.4) X10*3/uL Baso # (Auto) 0.1 (0.0-0.2) X10*3/uL Abs Immat Gran (auto) 0.03 (0.00-0.03) X10*3/uL Absolute Neuts (auto) 4.6 (2.0-8.3) x10*3/uL Absolute Nucleated RBC 0.000 (0.0-0.012) X10*3/uL Nucleated RBC % (auto) 0.0 (0.0-0.2) /100WBC Sodium 140 (135-145) mmol/L Potassium 3.8 (3.3-5.1) mmol/L Chloride 107 (96-108) mmol/L Carbon Dioxide 28 (22-29) mmol/L Anion Gap 9 L (12-20) BUN 16 (9-16) mg/dL Creatinine 1.21 (0.5-1.4) mg/dL Estim Creat Clear Calc 84.3 Estimated GFR > 60 Random Glucose 121 H (60-115) mg/dL Lactic Acid 1.2 (0.5-2.0) mmol/L Calcium 9.3 (8.4-10.2) mg/dL Magnesium 2.2 (1.6-2.6) mg/dL Total Bilirubin 0.7 (0.0-1.0) mg/dL Direct Bilirubin 0.2 (0.0-0.5) mg/dL AST 20 (5-37) U/L ALT 30 (0-40) U/L Alkaline Phosphatase 78 (39-117) U/L Total Creatine Kinase 79 (38-174) U/L Total Protein 7.0 (6.5-8.0) g/dL Albumin 4.4 (3.5-5.0) g/dL Ethyl Alcohol < 10 mg/dL Independent Historian Clinical information obtained from an independent historian. History obtained from or confirmed by: Spouse External Record Review External record reviewed: Inpatient record Chronic Conditions Patient?s care impacted by: Other (Substance use disorder, bipolar disorder) Social Determinants Patient?s care significantly limited by Social Determinants of Health including: Other Social Determinant of Health Discharge Plan Discharge Clinical Impression: Acute alteration in mental status, Sedative, hypnotic or anxiolytic abuse with intoxication, unspecified Patient Disposition: Home, Self-Care Additional Instructions: Overdose You were seen in our Emergency Department for altered mental status today. You were given Narcan last week at the other hospital. Narcan only lasts about 45 min to 1 hour in the system. You may have been given narcan to take home with you today, please keep it near you if you are going to use again, so others can use it if needed.? The number one risk for fatal overdose is using alone? [employer] is a 05/10 hotline where you can be on the phone with someone while you use, and they can call for help if they suspect an overdose: [phone] Things to look out for when you leave include severe vomiting or diarrhea, headaches, muscle cramps, fever, coughing, chest pain, or if you feel so short of breath you cannot walk to the bathroom. Please seek care and return any time for worsening symptoms.? You may have been provided with safer injection?items, please take time to take care of YOU and your health. Use new supplies whenever possible to lessen the chances of infections and other illnesses.? If you need more supplies, please go [facility],? [address] [place] [address] OR you can call or text to coordinate delivery of safer supplies. If you decide you want to stop or cut down on how much you?re using, please call the numbers on the list provided to you or you can come to our outpatient Addiction Treatment office [facility] (M-F 9am-5p) [address] [place] [address], [facility] [address] [place], [place]. [phone] Prescriptions: No Action loperamide [Imodium A-D] 2 mg capsule 2 mg PO Q6H PRN (Reason: loose stool) Qty: 10 0RF Rx Instructions: maximum 4 tabs, 8 mg per day ondansetron 4 mg tablet,disintegrating 4 mg PO Q6H PRN (Reason: nausea and vomiting) Qty: 14 0RF doxycycline hyclate 100 mg tablet 100 mg PO BID 7 Days Qty: 14 0RF methocarbamol 500 mg tablet 1,000 mg PO QID Qty: 20 0RF benztropine 1 mg tablet 1 mg PO BID Qty: 20 0RF azithromycin [Zithromax Z-Gilberto] 250 mg tablet See Rx Instructions .ROUTE .COMPLEX Qty: 6 0RF Rx Instructions: For 250 mg dose pack: take 500 mg today (day 1), then 250 mg for 4 days (days 2-5) prednisone 20 mg tablet 20 mg PO BID Qty: 10 0RF clindamycin HCl 150 mg capsule 150 mg PO TID 7 Days Qty: 21 0RF ibuprofen 600 mg tablet 600 mg PO TID PRN (Reason: fever or pain) Qty: 20 0RF Interventions: ED Discharge Assessment Last Done: 01/08/25 00:27 Discharge Date/Time: 01/08/25 00:30 Print Language: Qatari
[2025-01-07 21:10] LABS: MANUAL DIFF FLAG NO
[2025-01-07 21:11] LABS: Hematocrit 45.7 % (42.0-52.0); Hemoglobin 15.9 g/dl (14.0-18.0); Imm Gran Abs Auto 0.03 X10*3/uL (0.00-0.03); Imm Gran Pct Auto 0.4 % (0.0-0.4); Lymphocytes Absolute Auto 3.0 X10*3/uL (1.2-4.9); Mean Corpuscular HGB Conc 34.8 g/dl (31.0-36.0); Mean Corpuscular Hemoglobin 31.6 pg (27.0-33.0); Mean Corpuscular Volume 90.9 fL (80.0-98.0); NRBC Abs Auto 0.000 X10*3/uL (0.0-0.012); NRBC Pct Auto 0.0 /100WBC (0.0-0.2); Platelet Count 294 X10*3/uL (160-400); Red Blood Count 5.03 X10*6/uL (4.60-5.80); White Blood Count 8.4 X10*3/uL (4.8-10.8)
--- OUTSIDE RECORDS SUMMARY | 2025-01-07 21:17 | XMS_ITS | Clinical Summary ---
Author Organization [facility] Address [address] [place] [address] Phone Care Team Providers Care Ekg/Ecg Technician Name Role Phone Physician, No Pcp Primary Care Provider Unavaila ble Allergies Active Allergy Reactions Criticality Noted Date Comments Penicillins Dizziness 11/04/2023 DIZZINESS Medications Hospital, Clinic, or Other Facility Administered Medication Ordered Dose Route Frequency Start Date End Date Status naloxone (NARCAN) nasal spray 4 mgIndications:Dystoni a 4 mg nasl Once 01/02/2025 01/02/2025 Discontinued Encounters Date Type Department Care Team Description 01/03/2025 11:44 AM EDT - 01/03/2025 2:[address] [facility] Emergency [address] [place] [phone] Iona Hughes MD Substance use (Primary Dx) Discharge Disposition: Home or Self Care 01/02/2025 11:04 AM EDT - 01/02/2025 4:[address] [facility] Emergency [address] [place] [phone] Giancarlo Cope MD Dystonia (Primary Dx); Cocaine use Discharge Disposition: Home or Self Care from Last 3 Months Social History Tobacco Use Types Packs/Day Years Used Date Smoking Tobacco: Some Days Cigarettes Smokeless Tobacco: Never Tobacco Cessation:Ready to Q uit: Not Asked; Counseling Given: Not Answered Alcohol Use Standard Drinks/Week Comments Yes 0 (1 standard drink = 0.6 oz pur e alcohol) Sex and Gender Information Value Date Recorded Sex Assigned at Male 06/26/2024 11:32 PM EDT Legal Sex Male 7:34 PM EST Gender Identity Male 06/26/2024 11:32 PM EDT Sexual Orientation Straight 06/26/2024 11 :32 PM EDT Obstetrics History Last Filed Vital Signs Vital Sign Reading [...] Mass Index 28.19 01/03/2025 11:33 AM EDT Plan of Treatment Health Maintenance Due Date Last Done Comments DTaP,Tdap,and Td Vaccines (1 - Tdap) 09/03/2007 Hepatitis B Vaccines (1 of 3 - 19+ 3-dose series) 09/03/2007 Pneumococcal Vaccine: Pediat rics (0 to 5 Years) and At-Risk Patients (6 to 49 Years) (1 of 2 - PCV) 09/03/2007 HPV Vaccines (1 - 3-dose SCD M series) 09/03/2015 Cholesterol Screening (Lipid Panel) 02/14/2022 HIV Screening 02/14/2022 Hepatitis C Screening 02/14/2022 Social Influencers of Health Screening 02/14/2022 Depression Screening 03/15/2024 COVID-19 Vaccine ( - 2023-2 5 season) 2024 Influenza Vaccine (#1) 2024 RSV Immunization Adult Patie nts (1 - 1-dose 75+ series) 09/03/2063 HIB Vaccines Aged Out No longer eligi ble based on patient's age to complete this topic Hepatitis A Vaccines Aged Out No long er eligible based on patient's age to complete this topic IPV Vaccines Aged Out No longer eligi ble based on patient's age to complete this topic MMR Vaccines Aged Out No longer eligi ble based on patient's age to complete this topic Meningococcal ACWY Vaccine Aged Out N o longer eligible based on patient's age to complete this topic Meningococcal B Vaccine Aged Out No l onger eligible based on patient's age to complete this topic RSV Immunization Patients Un adele 20 months Aged Out No longer eligible b ased on patient's age to complete this topic Varicella Vaccines Aged Out No longer eligible based on patient's age to complete this topic Procedures Procedure Name Priority Date/Time Associated Diagnosis Comments ECG ANNOTATED 01/04/2025 ECG 12-LEAD STAT 01/03/2025 12:38 PM EDT TROPONIN I HIGH SENSITIVITY STAT 01/03/2025 12:27 PM EDT D-DIMER STAT 01/03/2025 12:27 PM EDT XR CHEST 1 VIEW STAT 01/02/2025 1:54 PM EDT MAGNESIUM STAT Add-on 01/02/2025 11:19 AM EDT CBC WITH AUTO DIFFERENTIAL STAT 01/02/2025 11:19 AM EDT CREATINE KINASE AND CKMB STAT 01/02/2025 11:19 AM EDT TROPONIN I HIGH SENSITIVITY STAT 01/02/2025 11:19 AM EDT LIPASE STAT 01/02/2025 11:19 AM EDT COMPREHENSIVE METABOLIC PANEL STAT 01/02/2025 11:19 AM EDT CBC AND DIFFERENTIAL STAT 01/02/2025 11:19 AM EDT ECG 12-LEAD STAT 01/02/2025 11:12 AM EDT from Last 3 Months Results * ECG-Annotated (01/04/2025) us Provider Onbase MD ECG ORDERABLES Final Result * ECG 12 lead (01/03/2025 12:38 PM EDT) Only the most recent of2 resultswithin the time period is included. Ventricular Rate ECG 80 BPM GEMUSE Atrial Rate 80 BPM GEMUSE P-R Interval 124 ms GEMUSE QRS Duration 88 ms GEMUSE Q-T Interval 408 ms GEMUSE QTc 470 ms GEMUSE P Wave [place] 60 degrees GEMUSE R [place] 32 degrees GEMUSE T [place] 47 degrees GEMUSE ECG Interpretation Normal sinus rhythm Normal ECG When compared with ECG of 02-JAN-2025 11:12, No significant change was found Confirmed by Keon LEVI JOHN ([id number]) on 01/03/2025 7:33:21 PM GEMUSE 01/03/2025 12:3 8 PM EDT 01/03/2025 7:33 PM EDT us Iona Hughes MD ECG ORDERABLES Final Result Performing Organization Address [facility]/ZIP Co de Phone Number GEMUSE * Troponin I high sensitivity (01/03/2025 12:27 PM EDT) Only the most recent of2 resultswithin the time period is included. [facility] High Sensitivity Troponin I <3 <=79 ng/L LAB CHEMISTRY METHOD 01/03/2025 1:[address] [facility] Blood Venous blood specimen / Unknown Venipuncture / Unknown 01/03/2025 12:27 PM EDT 01/03/2025 1:[address] [facility] - 01/03/2025 1:57 PM EDT High levels of biotin in samples may falsely decrease hsTroponin values. Use caution when interpreting hsTroponin results in patients taking biotin who exhibit renal impairment (eGFR <60) or in patients taking more than 20 mg/day of biotin. us Iona Hughes MD LAB BLOOD ORDERABLES Final R esult Performing Organization Address City/[facility]/ZIP Co de Phone Number [facility] [address] [place] [address], [place] [phone] * D-dimer, quantitative (01/03/2025 12:27 PM EDT) D-Dimer, Quant (D-DU) <150 <=230 ng/mL DDU LAB COAGULATION METHOD 01/03/2025 1:[address] [facility] Blood Venous blood specimen / Unknown Venipuncture / Unknown 01/03/2025 12:27 PM EDT 01/03/2025 1:[address] [facility] - 01/03/2025 1:44 PM EDT D-Dimer <230 ng/mL (D-Dimer units) is the threshold for exclusion of DVT/PE. D-Dimer may be elevated in: Critically ill, severely infected, trauma patients, DIC, acute CVA, acute MO, unstable angina, AF, old age, , and smoking. D-Dimer may be decreased with: Initiation of heparin therapy and oral anticoagulants. Iona Hughes MD LAB BLOOD ORDERABLES Final R esult [facility] [address] [place] [address], [place] [phone] * XR Chest 1 View (01/02/2025 1:54 [...] Signed Date: 01/02/2025 14:19 ET Workstation ID: [id number] Transcribed By: Self Edit Transcribed Date: 01/02/2025 [...] Signed Date: 01/02/2025 14:19 ET Workstation ID: [id number] Transcribed By: Self Edit Transcribed Date: 01/02/2025 14:18 ET us Giancarlo Cope MD IMG XR PROCEDURES Final Re sult * (ABNORMAL) CBC auto differential (01/02/2025 11:19 AM EDT) WBC 11.2(H) 4.8 - 10.8 K/mcL LAB HEMETOLOGY METHOD 01/02/2025 12:[address] [facility] RBC 5.30 4.50 - 5.50 M/mcL LAB HEMETOLOGY METHOD 01/02/2025 12:[address] [facility] Hemoglobin 17.1 13.5 - 17.5 g/dL LAB HEMETOLOGY METHOD 01/02/2025 12:[address] [facility] Hematocrit 48.0 42.0 - 54.0 % LAB HEMETOLOGY METHOD 01/02/2025 12:[address] [facility] MCV 90.1 79.0 - 98.0 FL LAB HEMETOLOGY METHOD [facility] MCH 32.1(H) 27.0 - 32.0 pcg LAB HEMETOLOGY METHOD 01/02/2025 [facility] MCHC 35.6 32.0 - 37.0 g/dL LAB HEMETOLOGY METHOD 01/02/2025 12:[address] [facility] RDW 12.7 11.0 - 15.0 % LAB HEMETOLOGY METHOD 01/02/2025 12:24 PM [facility] Platelets 324 130 - 400 K/mcL LAB HEMETOLOGY METHOD 01/02/2025 12:24 PM [facility] MPV 12.4(H) 7.0 - 11.0 FL LAB HEMETOLOGY METHOD 01/02/2025 12:24 PM [facility] NRBC 0.0 <1.0 % LAB HEMETOLOGY METHOD 01/02/2025 12:24 PM [facility] NRBC Absolute 0.00 <0.10 K/mcL LAB HEMETOLOGY METHOD 01/02/2025 12:24 PM [facility] Neutrophils Relative 74.4 % LAB HEMETOLOGY METHOD 01/02/2025 12:24 PM [facility] Lymphocytes Relative 18.2 % LAB HEMETOLOGY METHOD 01/02/2025 12:24 PM [facility] Monocytes Relative 6.4 % LAB HEMETOLOGY METHOD 01/02/2025 12:24 PM [facility] Eosinophils Relative 0.3 % LAB HEMETOLOGY METHOD 01/02/2025 12:24 PM [facility] Basophils Relative 0.3 % LAB HEMETOLOGY METHOD 01/02/2025 12:24 PM [facility] Immature Granulocytes Relative 0.4 % LAB HEMETOLOGY METHOD 01/02/2025 12:24 PM [facility] Neutrophils Absolute 8.34(H) 1.50 - 7.00 K/mcL LAB HEMETOLOGY METHOD 01/02/2025 12:[address] [facility] Lymphocytes Absolute 2.04 1.00 - 5.00 K/mcL LAB HEMETOLOGY METHOD 01/02/2025 12:[address] [facility] Monocytes Absolute 0.72 0.20 - 1.00 K/mcL LAB HEMETOLOGY METHOD 01/02/2025 12:[address] [facility] Eosinophils Absolute 0.03 0.00 - 0.50 K/mcL LAB HEMETOLOGY METHOD 01/02/2025 12:[address] [facility] Basophils Absolute 0.03 0.00 - 0.20 K/mcL LAB HEMETOLOGY METHOD 01/02/2025 12:[address] [facility] Immature Granulocytes Absolute 0.04(H) 0.00 - 0.03 K/mcL LAB HEMETOLOGY METHOD 01/02/2025 12:[address] [facility] Blood Venous blood specimen / Unknown Venipuncture / Unknown 01/02/2025 11:19 AM EDT 01/02/2025 12:04 PM EDT us Giancarlo Cope MD LAB BLOOD ORDERABLES Final Result [facility] [address] [place] [address], * Magnesium (01/02/2025 11:19 AM EDT) Magnesium 2.0 1.9 - 2.6 mg/dL LAB CHEMISTRY METHOD 01/02/2025 12:[address] [facility] Blood Venous blood specimen / Unknown Venipuncture / Unknown 01/02/2025 11:19 AM EDT 01/02/2025 12:04 PM EDT us Giancarlo Cope MD LAB BLOOD ORDERABLES Final Result [facility] [address] [place] [address], [place] [phone] * Lipase (01/02/2025 11:19 AM EDT) Lipase 45 13 - 75 unit/L LAB CHEMISTRY METHOD 01/02/2025 12:[address] [facility] Blood Venous blood specimen / Unknown Venipuncture / Unknown 01/02/2025 11:19 AM EDT 01/02/2025 12:04 PM EDT us Giancarlo Cope MD LAB BLOOD ORDERABLES Final Result Performing Organization Address [facility]/ZIP Co de Phone Number [facility] [address] [place] [address], [place] [phone] * (ABNORMAL) CK total and CKMB (01/02/2025 11:19 AM EDT) [facility] Total CK 127 22 - 269 unit/L LAB CHEMISTRY METHOD 01/02/2025 1:[address] [facility] CK-MB <1.0(L) 1.0 - 3.6 ng/mL LAB CHEMISTRY METHOD 01/02/2025 1:[address] [facility] CK-MB Index <0.0(L) 0.0 - 5.0 LAB CHEMISTRY METHOD 01/02/2025 1:[address] [facility] Blood Venous blood specimen / Unknown Venipuncture / Unknown 01/02/2025 11:19 AM EDT 01/02/2025 12:04 PM EDT us Giancarlo Cope MD LAB BLOOD ORDERABLES Final Result Performing Organization Address City/[facility]/ZIP Co de Phone Number [facility] [address] [place] [address], [place] [phone] * (ABNORMAL) Comprehensive Metabolic Panel (CMP) (01/02/2025 11:19 AM EDT) Sodium 137 133 - 145 mmol/L LAB CHEMISTRY METHOD 01/02/2025 1:01 PM [facility] Potassium 3.9 3.5 - 5.5 mmol/L LAB CHEMISTRY METHOD 01/02/2025 1:01 PM [facility] Chloride 105 96 - 110 mmol/L LAB CHEMISTRY METHOD 01/02/2025 1:01 PM [facility] CO2 24 21 - 32 mmol/L LAB CHEMISTRY METHOD 01/02/2025 1:01 PM [facility] Anion Gap 8 3 - 11 LAB CHEMISTRY METHOD 01/02/2025 1:01 PM [facility] Glucose 125(H) 70 - 100 mg/dL LAB CHEMISTRY METHOD 01/02/2025 1:01 PM [facility] BUN 11 5 - 25 mg/dL LAB CHEMISTRY METHOD 01/02/2025 1:01 PM [facility] Creatinine 1.11 0.70 - 1.30 mg/dL LAB CHEMISTRY METHOD 01/02/2025 1:01 PM [facility] eGFR 88 >=60 mL/min/1. 73m2 LAB CHEMISTRY METHOD 01/02/2025 1:01 PM [facility] Comment:Calculation based on the Chronic Kidney Disease Epidemiology Collaboration (CKD-EPI) equation refit without adjustment for race. BUN/Creatinine Ratio 9.9 LAB CHEMISTRY METHOD 01/02/2025 1:01 PM [facility] Calcium 10.0 8.5 - 10.5 mg/dL LAB CHEMISTRY METHOD 01/02/2025 1:01 PM [facility] AST (SGOT) 19 10 - 42 unit/L LAB CHEMISTRY METHOD 01/02/2025 1:01 PM [facility] ALT (SGPT) 52 10 - 60 unit/L LAB CHEMISTRY METHOD 01/02/2025 1:[address] [facility] Alkaline Phosphatase 99 42 - 121 unit/L LAB CHEMISTRY METHOD 01/02/2025 1:[address] [facility] Total Protein 7.9 6.0 - 8.0 g/dL LAB CHEMISTRY METHOD 01/02/2025 1:[address] [facility] Albumin 4.2 3.2 - 5.0 g/dL LAB CHEMISTRY METHOD 01/02/2025 1:[address] [facility] Total Bilirubin 0.6 0.0 - 1.4 mg/dL LAB CHEMISTRY METHOD 01/02/2025 1:[address] [facility] Blood Venous blood specimen / Unknown Venipuncture / Unknown 01/02/2025 11:19 AM EDT 01/02/2025 12:04 PM EDT us Giancarlo Cope MD LAB BLOOD ORDERABLES Final Result [facility] [address] [place] [address], [place] [phone] from Last 3 Months Insurance [facility] [employer] Care Teams Ekg/Ecg Technician Relationship Specialty Start Date End Date Physician, No Pcp PCP - General 01/03/25
--- OUTSIDE RECORDS SUMMARY | 2025-01-07 21:17 | XMS_ITS ---
Author Name [facility] Organization Unknown Results Test Name/Text Value Interpretation Date Range Source BKR REFLEX URINE CULTURE See Comment Normal 11/05/2023 [facility] Clarity Ur Refract.auto Clear Normal 11/05/2023 - [facility] Color Ur Auto Yellow Normal 11/05/2023 - [facility] pH Ur Strip.auto 6.0 Normal 11/05/2023 5.5 - 7.5 [facility] Sp Gr Ur Refract.auto 1.015 Normal 11/05/2023 1.005 - 1.03 [facility] WBC # Ur Strip Negative Normal 11/05/2023 - [facility] Hgb Ur Ql Strip.auto Negative Normal 11/05/2023 - [facility] Glucose Ur Strip.auto-mCnc Negative Normal 11/05/2023 - [facility] Prot Ur Strip.auto-mCnc Negative Normal 11/05/2023 - [facility] Urobilinogen Ur Strip-mCnc <2.0 mg/dL Normal 11/05/2023 - [facility] Bilirub Ur Ql Strip.auto Negative Normal 11/05/2023 - [facility] Ketones Ur Strip.auto-mCnc Negative Normal 11/05/2023 - [facility] Nitrite Ur Ql Strip.auto Negative Normal 11/05/2023 - [facility] MCV RBC Auto 93.9 fL Normal 11/05/2023 80 - [address] Basophils/leuk NFr Bld Auto 0.8 % Normal 11/05/2023 0 - 1.4 [facility] Monocytes/leuk NFr Bld Auto 6.6 % Normal 11/05/2023 4 - 12 [facility] Imm Granulocytes/leuk NFr Bld Auto 0.4 % Normal 11/05/2023 0 - 1 [facility] Hgb Bld-mCnc 17.2 g/dL Above high normal 11/05/2023 13.2 - 1 7.1 [facility] RDW RBC Auto-Rto 13.2 % Normal 11/05/2023 11 - 15 [facility] RBC # Bld Auto 5.28 M/uL Normal 11/05/2023 4 - 6 [facility] MCHC RBC Auto-mCnc 34.7 g/dL Normal 11/05/2023 31 - 36 [facility] nRBC # Bld Auto 0.0 x 1000/uL Normal 11/05/2023 0 - 1 [facility] Eosinophil # Bld Auto 0.08 x 1000/uL Normal 11/05/2023 0 - 1 [facility] Basophils # Bld Auto 0.07 x 1000/uL Normal 11/05/2023 0 - 1 [facility] MCH RBC Qn Auto 32.6 pg Normal 11/05/2023 27 - 33 [facility] Lymphocytes # Bld Auto 2.49 x 1000/uL Normal 11/05/2023 0.6 - 3.7 [facility] Neutrophils/leuk NFr Bld Auto 62.1 % Normal 11/05/2023 39 - 72 [facility] Imm Granulocytes # Bld Auto 0.03 x 1000/uL Normal 11/05/2023 0 - 0.3 [facility] Platelet # Bld Auto 378.0 x1000/uL Normal 11/05/2023 150 - 420 [facility] Lymphocytes/leuk NFr Bld Auto 29.2 % Normal 11/05/2023 17 - 50 [facility] nRBC/100 WBC Bld Auto-Rto 0.0 % Normal 11/05/2023 0 - 1 [facility] Monocytes # Bld Auto 0.56 x 1000/uL Normal 11/05/2023 0 - 1 [facility] Neutrophils # Bld Auto 5.29 x 1000/uL Normal 11/05/2023 2 - 7.6 [facility] PMV Bld Auto 11.5 fL Normal 11/05/2023 8 - [address] Eosinophil/leuk NFr Bld Auto 0.9 % Normal 11/05/2023 0 - 5 [facility] Hct VFr Bld Auto 49.6 % Normal 11/05/2023 38.5 - 50 [facility] WBC # Bld Auto 8.5 x1000/uL Normal 11/05/2023 4 - 11 [facility] Glucose SerPl-mCnc 93.0 mg/dL Normal 11/05/2023 70 - 100 [facility] BUN/Creat SerPl 8.2 Normal 11/05/2023 8 - 23 [facility] Sodium SerPl-sCnc 140.0 mmol/L Normal 11/05/2023 136 - 14 4 [facility] HCO3 SerPl-sCnc 27.0 mmol/L Normal 11/05/2023 20 - 30 [facility] Creat SerPl-mCnc 1.1 mg/dL Normal 11/05/2023 0.4 - 1.3 [facility] BUN SerPl-mCnc 9.0 mg/dL Normal 11/05/2023 6 - 20 [facility] Calcium SerPl-mCnc 9.4 mg/dL Normal 11/05/2023 8.8 - 10.2 [facility] Potassium SerPl-sCnc 4.3 mmol/L Normal 11/05/2023 3.3 - 5 .3 [facility] Chloride SerPl-sCnc 102.0 mmol/L Normal 11/05/2023 98 - 1 07 [facility] Anion Gap3 SerPl-sCnc 11.0 Normal 11/05/2023 7 - 17 [facility] GFR/BSA.pred SerPlBld [id number] >60.0 mL/min/1.73m2 Normal 11/05/2023 - [facility] Magnesium SerPl-mCnc 2.1 mg/dL Normal 11/05/2023 1.7 - 2. 4 [facility] Bilirub SerPl-mCnc 0.3 mg/dL Normal 11/05/2023 - [facility] Albumin SerPl BCG-mCnc 4.7 g/dL Normal 11/05/2023 3.6 - 5.1 [facility] ALT SerPl w/o P-5'-P-cCnc 47.0 U/L Normal 11/05/2023 9 - 59 [facility] Bilirub Direct SerPl-mCnc <0.2 mg/dL Normal 11/05/2023 - [facility] AST SerPl w P-5'-P-cCnc 35.0 U/L Normal 11/05/2023 10 - 35 [facility] ALP SerPl-cCnc 94.0 U/L Normal 11/05/2023 9 - 122 [facility] Albumin/Glob SerPl 1.5 Normal 11/05/2023 1 - 2.2 [facility] Prot SerPl-mCnc 7.8 g/dL Normal 11/05/2023 5.9 - 8.3 [facility] Globulin Plas-mCnc 3.1 g/dL Normal 11/05/2023 2 - 3.9 [facility] AST/ALT SerPl-cRto 0.7 Normal 11/05/2023 - [facility] Lipase SerPl-cCnc 25.0 U/L Normal 11/05/2023 11 - 55 [facility] Encounters Encounter Type Encounter Reason Primary Diagnosis Location Date Emergency Painful respiration Painful respiration Y margarita [facility] 11/04/2023 Care Team Organization Name Specialty Phone Email Start Date End Da ladonna [facility] Sharmaine castaneda [facility] 11/05/2023
--- OUTSIDE RECORDS SUMMARY | 2025-01-07 21:18 | XMS_ITS | Clinical Summary ---
Author Organization [address] Address [address] [place] [phone] Care Team Providers Care Feather Boner Name Role Phone Unavailable Primary Care Provider Unavailabl e Allergies Active Allergy Reactions Criticality Noted Date Comments Penicillins Dizziness 11/04/2023 Medications baclofen (LIORESAL) 10 mg tablet Take 1 tablet (10 mg total) by mouth 3 (three) times daily. 30 tablet 11/05/2023 Active Social History Tobacco Use Types Packs/Day Years Used Date Smoking Tobacco: Never Assessed Interpersonal Safety Answer Date Record ed Is there anyone in your life that is hurting or threatening you in anyway? no 11/05/2023 Physical Indicators of Abuse No evidence of phys ical abuse 11/05/2023 Sex and Gender Information Value Date Recorded Sex Assigned at Not on file Legal Sex Male 11:01 PM EDT Gender Identity Not on file Sexual Orientation Not on file Last Filed Vital Signs Vital Sign Reading Time Taken Comments Blood Pressure 134/91 11/04/2023 11:08 PM EDT Pulse 100 11/04/2023 11:08 PM EDT Temperature 36.7 C (98 F) 11/04/2023 11:08 PM EDT Respiratory Rate 16 11/04/2023 11:08 PM EDT Oxygen Saturation 98% 11/04/2023 11:08 PM EDT Inhaled Oxygen Concentration - - Weight 70 kg (154 lb 5.2 oz) 11/04/2023 11:08 PM EDT Height - - Body Mass Index - - Plan of Treatment Health Maintenance Due Date Last Done Comments HIV screening 2001 Hepatitis C screening 2006 Tetanus adult (Td q 10,TDAP once) 2008 Influenza vaccine 10/13/2024 Covid-19 vaccine series ( - 2024- season) 2024 RSV Immunization (1 - 1-dose 75+ series) 09/03/2063 Meningococcal B Vaccine Aged Out No l onger eligible based on patient's age to complete this topic Meningococcal Vaccine Aged Out No philippe deon eligible based on patient's age to complete this topic Pneumococcal Vaccine (2 - 49 years) Aged Out No longer eligible based on patient's age to complete this topic Insurance [employer] COMM[employer]CIAL [employer]IC COMM[employer]CIAL [employer]IC
--- OUTSIDE RECORDS SUMMARY | 2025-01-07 21:18 | XMS_ITS | Data Portability ---
Author Organization HARITHA PRINCE MD [facility], Main Office Address [address] [place] [address] Assessment No assessment recorded. Plan of Treatment Reminders Order Date Submit Date Provider Last Modified By Organization Details Last Modified Time Details Appointments None recorded. Lab culture, urine 2022 023 [email or web address] [address] [place], [address] [place] [address], [id number], 17:02:48 urinalysis, complete 2022 023 [address], [address] [place] [address], [address], 20:54:49 CT + NG + TV, DNA, urine/swab 2022 023 [email or web address] [address] [place], [address] [place] [address], [id number], 16:43:34 Referral None recorded. Procedures None recorded. Surgeries None recorded. Imaging None recorded. Medication Orders prednisone 10 mg tablet 2022 023 DAPHNE [facility] #[id number], [address] [place], [address], 3 15:36:36 Flonase Allergy Relief 50 mcg/actuati on nasal spray,suspe nsion 2022 023 DAPH[address] [facility][id number], [address] [place], [address], 3 15:36:35 loratadine 10 mg tablet 2022 023 [facility]/Ph[facility]acy #[id number], [address] [place] [address], [address], 15:37:56 Patient TargetsNo targets recorded. Patient InstructionsNo instructions recorded. Reason for Referral None Reported. Results Created Date Observation Date Name Description Value Unit Range Abnormal Flag Note LastModifiedBy Organization Detail LastModifiedTime 01/26/2001/25/2023 URINA LYSIS glucose, (UA) NEGATI VE mg/dL negati ve Not Available [facility] [address] [place], [address], 01/25/2023 20:54:49 01/26/2001/25/2023 URINA LYSIS bilirubin, urine NEGATI VE negati ve Not Available [facility] [address] [place], [address], 01/25/2023 20:54:49 01/26/2001/25/2023 URINA LYSIS ketone, urine TRACE mg/dL negati ve abnormal Not Available [facility] [address] [place], [address], 01/25/2023 20:54:49 01/26/2001/25/2023 URINA LYSIS specific gravity, urine 1.016 1.003- 1.030 Not Available [facility] [address] [place], [address], 01/25/2023 20:54:49 01/26/2001/25/2023 URINA LYSIS blood, urine NEGATI VE negati ve Not Available [facility] [address] [place], [address], 01/25/2023 20:54:49 01/26/2001/25/2023 URINA LYSIS pH, urine 5.5 5.0-8. 0 Not Available [facility] [address] [place], [address], 01/25/2023 20:54:49 01/26/2001/25/2023 URINA LYSIS protein, urine NEGATI VE mg/dL <= trace Not Available [facility] [address] [place], [address], 01/25/2023 20:54:49 01/26/2001/25/2023 URINA LYSIS urobilinogen , urine 0.2 E.U./ dL 0.2-1. 0 Not Available [facility] [address] [place] [address], [address], 01/25/2023 20:54:49 01/26/2001/25/2023 URINA LYSIS nitrite, urine NEGATI VE negati ve Not Available [facility] [address] [place] [address], [id number], 01/25/2023 20:54:49 01/26/2001/25/2023 URINA LYSIS leukocyte esterase, urine NEGATI VE negati ve Not Available [facility] [address] [place] [address], [address], 01/25/2023 20:54:49 01/26/2001/25/2023 URINA LYSIS performing lab [facility] [address] [place] [address] Medic al Diredionicio markham MD Not Available [facility] [address] [place] [address], [address], 01/25/2023 20:54:49 01/26/2001/25/2023 URINE CULTU RE performing lab [facility], [facility] [address] [place] [address] Medic al Rm markham MD Not Available [facility] [address] [place] [address], [address], 01/26/2023 13:44:59 01/26/20 23 01/26/2023 URINE CULTU RE urine culture No growth Not Available [facility] [address] [place] [address], [address], 01/26/2023 13:44:59 01/26/20 23 01/26/2023 CHLAM YDIA DNA URINE chlamydia DNA urine NEGATI VE negati ve Not Available [facility] [address] [place], [address], 01/26/2023 14:44:02 01/26/20 23 01/26/2023 GC DNA URINE GC DNA urine NEGATI VE negati ve Not Available [facility] [address] [place], [address], 01/26/2023 14:44:02 01/26/20 23 01/26/2023 GC DNA URINE performing lab [facility], [facility] [address] [facility] [place] [address] Medic al Direc vianca markham MD Not Available [facility] [address] [place], [address], 01/26/2023 14:44:02 Result Notes None recorded. Medical Equipment None Reported. Medications Name Sig Start Date Stop Date Status Note LastModified by Organization Details LastModified Time buspirone 5 mg tablet active Not Available Not Available No t Available prednisone 10 mg tablet TAKE 1 TABLET BY MOUTH EVERY DAY FOR 5 DAYS active Not Available Not Available No t Available azithromycin 250 mg tablet TAKE 2 TABLETS BY MOUTH TODAY, THEN TAKE 1 TABLET DAILY FOR 4 DAYS DIRECTED active Not Available Not Available No t Available prednisone 20 mg tablet TAKE 1 TABLET BY MOUTH TWO TIMES A DAY active Not Available Not Available Not Available clindamycin HCl 150 mg capsule TAKE 1 CAPSULE BY MOUTH 3 TIMES A DAY FOR 7 DAYS active Not Available Not Available N ot Available lamotrigine 25 mg tablet active Not Available Not Available Not Available zolpidem 5 mg tablet active Not Available Not Available No t Available fluticasone propionate 50 mcg/actuatio n nasal spray,suspen evelyn SPRAY 1 SPRAY BY INTRANASAL ROUTE EVERY DAY active Not Available Not Available No t Available doxycycline hyclate 100 mg tablet TAKE 1 TABLET BY MOUTH TWICE A DAY FOR 7 DAYS active Not Available Not Available No t Available loratadine 10 mg tablet Take 1 tablet every day by oral route. 2022 active Not Available Not Available Not Avai lable Vitals Date Recorded Body weight Oxygen saturation Oxygen saturation in Arterial blood by Pulse oximetry Heart rate Body temperature Systolic And Diastolic Provider Name and Address Organization Details Last Updated DateTime 3 27629.8 6 g 97 % 97 % 114 /min 98.6 [degF] 110/70 mm[Hg] Tash WHITLEY MD [facility] 3 14:13:47 Date Recorded Body height Body temperature Respiratory rate Body mass index (BMI) Body weight Systolic And Diastolic Provider Name and Address Organization Details Last Updated DateTime 3 175.26 cm 98.8 [degF] 11 /min 21.9 kg/m2 08233.6 7 g 130/70 mm[Hg] Candis WHITLEY MD [facility] 3 15:08:07 Social History Question Answer Notes LastModified by Organizat ion Details LastModified Time Tobacco Smoking Status Current Some Day Smoker HARITHA Chu MD [facility] 01/25/2023 14:16:31 Are You Blind Or Do You Have Difficulty Seeing? No Information not available 01/25/2023 Are You Deaf Or Do You Have Serious Difficulty Hearing? No [email or web address] Information not available 01/25/2023 Which Of Your Hands Is Dominant? Right [email or web address] Information not available 01/25/2023 What Is Your Relationship Status? Domestic Partner [email or web address] Information not available 01/25/2023 Do You Use Your Seat Belt Or Car Seat Routinely? Yes [email or web address] Information not available 01/25/2023 Do You Have Difficulty Walking Or Climbing Stairs? No [email or web address] Information not available 01/25/2023 Sex: Male Functional Status Question Answer Note LastModified by Organization D etails LastModified Time Do you have difficulty doing errands alone? No [email or web address] Information not available 01/25/2023 Are you able to care for yourself independently? Yes [email or web address] Information not available 01/25/2023 Do you have difficulty dressing, bathing, grooming, or toileting? No [email or web address] Information not available 01/25/2023 Mental Status Question Answer Note LastModified by Organizat ion Details LastModified Time Do you feel stressed (tense, restless, nervous, or anxious, or unable to sleep at night)? [id number] Information not available 01/25/2023 Do you have difficulty concentrating, remembering or making decisions? No [email or web address] Information no t available 01/25/2023 Family History Nothing Reported Notes:cancer ,diabetes , HBP ,heart problems father, grandmother Medical History Condition Response Anxiety Disorder Y ADD/ADHD Y Depression Y Past Encounters Encounter ID Performer Location Encounter Start Date Encounter Closed Date Diagnosis/Indication Diagnosis SNOMED-CT Code Diagnosis ICD10 Code Diagnosis IMO Codes Diagnosis Note [id number] Sabiha Whitley MD Main Office [address] [place] [address] 01/25/2023 14:01:24 01/25/2023 14:37:38 Dysuria 94170649 R30.0 u/a and u/cGC/chla mydia screenrequ est STI panel pt had done.will tx if positive infectionh ydrationco ndom use for STi prevention PreP reviewed. [id number] Sabiha Whitley MD Main Office [address] [place] [address] 02/10/2023 15:00:20 02/10/2023 17:03:01 Nasal congestion 76969930 R09.81 no active infection. treatment as below.call if fever, green/yell ow discharget o ER if worsening pain vision changes, vertigo, headaches or other Health Concerns Section Related Observation LastModified by Organization Detai ls LastModified Time None Recorded Concern Status LastModified by Organization Details LastModified Time None Recorded Advance Directives Directive None Recorded Payers Insurance Date Sequence Insurance Name Policy Number Policy [place] Covered Member ID [place] Member ID Guarantor Name 01/25/2023 1 [facility] [employer] - TOGET[employer] (MEDICAID HMO) [id number] Kris Wilks [id number] 1 Kris Wilks 02/10/2023 1 [facility] [employer] (MEDICAID HMO) [id number] Kris Wilks [id number] Kris Wilks 01/25/2023 1 [facility] [id number] Kris Wilks [id number] Kris Wilks Notes Date Note Type Note Provider Name and Address Organization Details Recorded Time 01/25/2023 text/html ROS as noted in the HPI came for UTI testingwife gets recurrent UTI w Ecoli/MRSAhe has no hx UTI, and denies UTI sx.no dysuria. no hematurisano Hx STI.no back painno feverhe denies STi hx. .hx PNC intolerance: dizziness/vomiting; intolerance.no other current sexual partnerspt reports had recent labs done with no STI's.no interest in [facility] female sexual partnerfemale partner has no HIVno fever. no genital discharge.no rash. Sabiha Whitley MD [address] [place] [address], [phone], HARITHA WHITLEY MD [facility] 01/25/2023 14:45:58 02/10/2023 text/html ROS as noted in the HPI left nasal bleeding\nasal congestion. chronic sx; however, flare up for about a month.reports had a CT scan head [facility] about 3-4 weeks ago; was told it was ok.eye lacrimatingL ear pain worse with blowing of his nose, and nasal congestion. no green/yellow discharge from nose. no pharyngeal exudatesno coughno asthma.denies recent URI. denies recent COVID.not using meds.dental pain; has been evaluated already: underwent initial root canal on lower tooth; awaiting 2nd root canal on an upper tooth. he has been awaiting appointment and insurance coveragehas lost some weight.no feverno sinus pain. no visual sxno headachenausea with antibiotic use.no vertigo.no diarrhea.no GERDhas been treated with Clindamycin 150mg po tid x 7 days. ; 02/01/2023; treated 2-3 weeks ago with a different antibiotic; no differenc in sx nor pain. He was at ER, and antibiotics prescribed.hx intolerance/allergy PNC: vomiting/dizziness; no rash; no SOB; . no other allergies nor antibiotics.ear pain at night. using ear drops. Sabiha Whitley MD [address] [place] [address], [phone], HARITHA WHITLEY MD [facility] 02/10/2023 18:05:15
--- OUTSIDE RECORDS SUMMARY | 2025-01-07 21:18 | XMS_ITS | Patient Health Record ---
Author Organization [employer]. Address [address] [place] [address] [address] [place] [address] Care Team Providers Care Sales Service Assistant Name Role Phone Christine Hamilton Primary Care Provider Andre Boyer Unavailable [phone] Allergies Allergen (clinical drug ingredient) Drug/Non Drug Allergy documented on EMR Reaction Allergy Type Onset Date Status penicillin anaphylaxis Drug Allergy 05/10/2019 Act john Reason For Referral No Information Medications Medication SIG (Take, Route, Frequency, Duration) Notes Start Date End Date Status Silver sulfADIAZINE 1 % 1 application Ex ternally BID; Duration: 14 days 04/02/2020 Active Promethazine-DM 6.25-15 MG/5ML 5 ml as needed Orally every 6 hrs; Duration: 7 days 10/18/2020 Active Diclofenac Sodium 75 MG 1 tablet Orally Twice a day; Duration: 30 day(s) 04/02/2020 Active Baclofen 20 MG 1 tablet administer without regards to meals as needed Orally Once a day; Duration: 30 days 04/02/2020 Active Lexapro 10 MG 1 tablet Orally Once a day; Duration: 90 days 04/02/2020 Active traZODone HCl 100 MG 1 tablet at bedtime Orally Once a day; Duration: 90 days 04/02/2020 Active Fluticasone Propionate 50 MCG/ACT 1 spray in each nostril Nasally Once a day 10/18/2020 Active Ibuprofen 800 MG 1 tablet with food o r milk as needed Orally BID; Duration: 14 days 10/18/2020 Active Social History Tobacco Use: Social History Observation Description Date Details (start date - stop date) Current Smoker NA - NA Tobacco Use/Smoking Question Answer Notes Are you a current smoker How often do you smoke cigarettes? some days, bu t not every day How many cigarettes a day do you smoke? 5 or les s Alcohol Screen Question Answer Notes Did you have a drink contain ing alcohol in the past year? Yes How often did you have a dri nk containing alcohol in the past year? Monthly or less (1 point) How many drinks did you have on a typical day when you were drinking in the past year? 1 or 2 drinks (0 point) How often did you have 6 or more drinks on one occasion in the past year? Less than monthly (1 point) Points 2 Interpretation Negative Sexual History Question Answer Notes Had sex in the past 12 months (vaginal, oral, or anal)? Yes with Women only Use protection? Yes How often? All of the time Prevention strategies discussed: Other Have you ever had a Sexually transmitted disease ? No Problems Problem Type SNOMED Code ICD Code Onset Dates Problem Status W/U Status Risk Notes Problem Moderate recurrent major depression (24906153) Major depressive disorder, recurrent, moderate (F33.1) Active confirmed Problem Insomnia (277716257) Insomnia (G47.00) Active confirmed Problem Backache (494046128) Dorsalgia (M54.9) Active confirmed Problem Gastroesophageal reflux disease with esophagitis (disorder) (549117481) Esophagitis, reflux (K21.0) Active confirmed Plan Of Treatment Pending Test Test Name Order Date X ray : Hand, right 2-3 views 09/05/2019 Lipid Panel-Q-LC 05/10/2019 Comprehensive Metabolic Panel 14+eGFR-LC -Q 05/10/2019 Urinalysis, Gwetkpwi-RD-J 05/10/2019 CBC With Differential/Aevizgye-LT-K 04/16 SARS CoV 2 RNA, QL REAL TIME RT PCR-LC 0 09/05/2019 SARS CoV 2 RNA, QL REAL TIME RT PCR-Q SARS-CoV-2, VAHE 10/21/2020 SARS COV 2 AB (IGG) SPIKE, SEMI QN 10/21 Insurance Providers Payer Name Payer Address Payer Phone Subscriber Number Group Number Insured Name Patient Relationship to Insured Coverage Start Date Coverage End Date Rad Complete [facility] [address] [place] [address] [phone] [id number] DIRK COLON Self - patient is the insured Medical (General) History Medical History History ICD Code Major depressive disorder, recurrent, mo alejandra F33.1 Surgical History Surgery Date(Month/Year)
[2025-01-07 21:33] LABS: Alanine Aminotransferase 30 U/L (0-40); Albumin Level 4.4 g/dL (3.5-5.0); Alkaline Phosphatase 78 U/L (39-117); Anion Gap 9 (12-20); Aspartate Amino Transferase 20 U/L (5-37); Blood Urea Nitrogen 16 mg/dL (9-16); Calcium 9.3 mg/dL (8.4-10.2); Carbon Dioxide 28 mmol/L (22-29); Chloride 107 mmol/L (96-108); Creatinine Clr Calc Pharmacy 84.3; Estimated Glomerular Filt Rate > 60; Magnesium 2.2 mg/dL (1.6-2.6); Potassium 3.8 mmol/L (3.3-5.1); Sodium 140 mmol/L (135-145); Total Protein 7.0 g/dL (6.5-8.0)
--- NOTE | 2025-01-08 00:06 | PC.NURSE ---
PT stating that he wants to go home, pt becoming aggressive, security called, pt directed, Dr. Ramirez at bedside to eval pt, pt was able to ambulate with a steady gait and turn around without trouble, [email or web address], nad, pt to be discharged
[2025-01-08] MEDS: Naloxone HCl Nasal TAKE HOME 4 MG SPRAY 8 MG NOSTRILALT (00:19)
[2025-01-08 00:27] VITALS: BP 116/70; PULSE 80; RESP 16; TEMP 36.3; O2SAT 98
== END 2025-01-08 00:30 | disposition home or self-care (01) ==
PROVIDERS: Nurse Practitioner Family; Emergency Provider Emergency Medicine
DX: F19.129 Other psychoactive substance abuse with intoxication, unspecified (principal); R41.82 Altered mental status, unspecified; F11.10 Opioid abuse, uncomplicated; R47.81 Slurred speech; R11.0 Nausea; Z51.81 Encounter for therapeutic drug level monitoring; Z79.899 Other long term (current) drug therapy
CPT/HCPCS: 36415; 80048; 80076; 80307; 82550; 83605; 83735; 85025; 96360; 99284

== ENCOUNTER 2025-01-08 17:37 | Emergency (ER) | payer OTHER, SELFPAY ==
--- OUTSIDE RECORDS SUMMARY | 2025-01-03 11:44 | XMS_ITS | Encounter Summary ---
Author Organization [facility] Address [address] [place] [address] Care Team Providers Care Operations Support Representative Name Role Phone Physician, No Pcp Primary Care Provider Unavaila ble Reason for Visit * Reason Comments Shortness of Breath Feels SOB. Here yest erday for same. Was treated for dystonic reaction. Encounter Details Date Type Department Care Team (Late st Contact Info) Description 01/03/2025 11:44 AM EDT - 01/03/2025 2:25 PM EDT Emergency [facility] Emergency [address] [place] [phone] Iona Hughes MD [address] [place] [address] Substance use (Primary Dx) Discharge Disposition: Home or Self Care Social [...] Sign Reading Time Taken Comments Blood Pressure 115/77 01/03/2025 2:17 PM EDT Pulse 85 01/03/2025 2:17 PM EDT Temperature 36.4 C (97.6 F) 01/03/2025 11:35 AM EDT Respiratory Rate 15 01/03/2025 2:17 PM EDT Oxygen Saturation 97% 01/03/2025 2:17 PM EDT Inhaled Oxygen Concentration - - Weight 81.6 kg (180 lb) 01/03/2025 11:33 AM EDT Height 170.2 cm (5' 7 ) 01/03/2025 11:33 AM EDT Body Mass Index 28.19 01/03/2025 11:33 AM EDT documented in this encounter Functional Status * Calculated C-SSRS Risk Score (Lifetime/Recent) Answer Date of Assessment Author No Risk Indicated 01/03/2025 11:33 AM EDT Talib Chavira RN * [place] Suicide Severity Rating Scale (Screener/Recent Self-Report) Question Answer Date of Assessment Author 1. Wish to be (Past 1 Month) No 11:33 AM EDT Talib Chavira RN 2. Non-Specific Active Suici kg Thoughts (Past 1 Month) No 01/03/2025 11:33 AM EDT Luis Chavira ph, RN 6. Suicidal Behavior (Lifetime) No 11:33 AM EDT Talib Chavira RN documented as of this encounter Discharge Instructions * Discharge Instructions* Iona Hughes MD - 01/03/2025 2:14 PM EDT Your labs and EKG are reassuring. Stop using cocaine. Follow up with your primary care physician. Return for any new, worsening or concerning symptoms. Nellie an??lisis y electrocardiograma son tranquilizadores. Deje de consumir coca??na. Consulte con sum??dico de cabecera. Regrese si presenta s??ntomas nuevos, que empeoran o que le preocupan. documented in this encounter Discharge Disposition Disposition Code Departure Means Destination Comment s Home or Self Care Reviewed discharge instructions with patient who verbalizes understanding and was advised to return to ED if symptoms worsen. Patient seen leaving ED in wheelchair with family and no acute distress at this time. documented in this encounter Progress Notes * Talib Chavira RN - 01/03/2025 11:32 AM EDT Pt reports SOB and feeling bad here yesterday and treated for a dystonic reaction. States he feltbetter when he left yesterday but awoke feeling bad today. * Iona Hughes MD - 01/03/2025 11:30 AM EDT HPI Chief Complaint Patient presents with Shortness of Breath Feels SOB. Here yesterday for same. Was treated for dystonic reaction. 34 YO M with h/o cocaine use presenting with left-sided neck and jaw pain / stiffness, onset this morning. He is also reporting chest pain. Patient is Nepali-speaking, in person interpreter deaf used forduration of encounter. Patient father is at bedside, father states patient was perfectly fine this morning. My assessment, he is tremulous and patient's neck is contracted to the left. He was seen in the emergency department yesterday for similar symptoms. ACS workup reassuring. Patient was discharged after IV Benadryl and Ativan. Denies any systemic signs of illness. No shortness of breath. Denies any IV drug use. No neck or back pain. No motor or sensory deficits. No further complaints offered. [place] Coma Scale Score: 15 Patient History Medical History[1] Surgical History[2] Family History[3] Social History Tobacco Use Smoking status: Some Days Types: Cigarettes Smokeless tobacco: Never Substance Use Topics Alcohol use: Yes Drug use: Yes Types: Cocaine Review of Systems Review of Systems Physical Exam ED Triage Vitals [01/03/25 1135] Temp Heart Rate Resp BP 36.4 ??C (97.6 ??F) 106 16 115/77 SpO2 Temp src Heart Rate Source Patient Position 96 % -- -- -- BP Location FiO2 (%) -- -- Physical Exam ED Course & MDM ED Course as of 01/03/25 1424 WedJan 03, 2025 1302 Patient reassessed, feeling much better. Tachycardia resolved. Labs pending [BD] 1355 D-Dimer, Quant (D-DU): <150 [BD] 1404 High Sensitivity Troponin I: <3 [BD] 1406 EKG normal sinus rhythm, troponin and dimer negative. [BD] ED Course User Index [BD] Iona Hughes MD Clinical Impressions as of 01/03/25 1424 Substance use Medical Decision Making 34 YO M with h/o cocaine use presenting with left-sided neck and jaw pain / stiffness, onset this morning after cocaine use. Patient is alert, no acute distress. Tachycardic on arrival otherwise hemodynamically stable. See history and exam below. Suspect patient's are secondary to cocaine use however other differentials include dystonic reaction, PE, ACS, pneumothorax. Chart reviewed: Patient had relatively broad work up yesterday which was negative. Will obtain EKG, troponin and add a dimer today. IVFs, benadryl and ativan ordered. Will reassess. Troponin and dimer negative. EKG with normal sinus rhythm. On reassessment, patient feeling much better. Tachycardia resolved. He is no longer tremulous, neck and jaw symptoms have resolved. He is feeling better on reassessment. Requesting to go home. I do feel at this time patient is clinically stable for discharge. Encouraged him to stop using cocaine. Addiction medicine consult was placed yesterday who came by and provided resources. Encouraged patient to follow-up with primary care physician. Return precautions placed. Procedures Iona Hughes MD 01/03/25 5504 [1] History reviewed. No pertinent past medical history. [2] History reviewed. No pertinent surgical history. [3] No family history on file. Iona Hughes MD 01/03/25 7636 documented in this encounter Plan of Treatment Not on file documented as of this encounter Procedures Procedure Name Priority Date/Time Associated Diagnosis Comments ECG ANNOTATED 01/04/2025 ECG 12-LEAD STAT 01/03/2025 12:38 PM EDT TROPONIN I HIGH SENSITIVITY STAT 01/03/2025 12:27 PM EDT D-DIMER STAT 01/03/2025 12:27 PM EDT documented in this encounter Results * ECG-Annotated (01/04/2025) us Provider Onbase MD ECG ORDERABLES Final Result * ECG 12 lead (01/03/2025 12:38 PM EDT) [facility] Ventricular Rate ECG 80 BPM GEMUSE Atrial Rate 80 BPM GEMUSE P-R Interval 124 ms GEMUSE QRS Duration 88 ms GEMUSE Q-T Interval 408 ms GEMUSE QTc 470 ms GEMUSE P Wave [place] 60 degrees GEMUSE R [place] 32 degrees GEMUSE T [place] 47 degrees GEMUSE ECG Interpretation Normal sinus rhythm Normal ECG When compared with ECG of 02-JAN-2025 11:12, No significant change was found Confirmed by Keon LEVI JOHN ([id number]) on 01/03/2025 7:33:21 PM GEMUSE 01/03/2025 12:3 8 PM EDT 01/03/2025 7:33 PM EDT Iona Hughes MD ECG ORDERABLES Final Result Performing Organization Address [facility] Co de Phone Number GEMUSE * Troponin I high sensitivity (01/03/2025 12:27 PM EDT) [facility] High Sensitivity Troponin I <3 <=79 ng/L LAB CHEMISTRY METHOD 01/03/2025 1:57 PM EDT [facility] Blood Venous blood specimen / Unknown Venipuncture / Unknown 01/03/2025 12:27 PM EDT 01/03/2025 1:24 PM EDT Narrative [facility] - 01/03/2025 1:57 PM EDT High levels of biotin in samples may falsely decrease hsTroponin values. Use caution when interpreting hsTroponin results in patients taking biotin who exhibit renal impairment (eGFR <60) or in patients taking more than 20 mg/day of biotin. us Iona Hughes MD LAB BLOOD ORDERABLES Final R esult Performing Organization Address City/[facility]/ZIP Co de Phone Number [facility] [address] [place] [address], * D-dimer, quantitative (01/03/2025 12:27 PM EDT) D-Dimer, Quant (D-DU) <150 <=230 ng/mL DDU LAB COAGULATION METHOD 01/03/2025 1:44 PM EDT [facility] Blood Venous blood specimen / Unknown Venipuncture / Unknown 01/03/2025 12:27 PM EDT 01/03/2025 1:24 PM EDT Narrative [facility] - 01/03/2025 1:44 PM EDT D-Dimer <230 ng/mL (D-Dimer units) is the threshold for exclusion of DVT/PE. D-Dimer may be elevated in: Critically ill, severely infected, trauma patients, DIC, acute CVA, acute [place], unstable angina, AF, old age, , and smoking. D-Dimer may be decreased with: Initiation of heparin therapy and oral anticoagulants. us Iona Hughes MD LAB BLOOD ORDERABLES Final R esult [facility] [address] [place] [address], documented in this encounter Visit Diagnoses Diagnosis Substance use- Primary documented in this encounter Administered Medications Inactive Administered Medications - up to 3 most recent administrations Medication Order MAR Action Action Date Dose Rate Site diphenhydrAMINE (BENADRYL) injection 25 mg 25 mg, intravenous, Once, On Wed01/03/25 at 1216, For 1 dose Given 01/03/2025 12:26 PM EDT 25 mg LORazepam (ATIVAN) injection 2 mg 2 mg, intravenous, Once, On Wed01/03/25 at 1216, For 1 dose, Prior to IV use, lorazepam injection should be DILUTED with an equal volume of compatible solution; Rate of administration should NOT exceed 2 mg/min. Given 01/03/2025 12:25 PM EDT 2 mg sodium chloride 0.9 % bolus 1,000 mL 1,000 mL, intravenous, at 2,000 mL/hr, Administer over 30 Minutes, Once, On Wed01/03/25 at 1216, For 1 dose New Bag 01/03/2025 12:25 PM EDT 1,000 mL 2000 mL/hr documented in this encounter Active and Recently Administered Medications Times are shown in EDT. Scheduled Medication Order 01/01/2025 01/02/2025 01/03/2025 diphenhydrAMINE (BENADRYL) injection 25 mg (COMPLETED) 25 mg, intravenous, Once, On Wed01/03/25 at 1216, For 1 dose 1226 (Given - Provid er: Heavenly Mtz RN) LORazepam (ATIVAN) injection 2 mg (COMPLETED) 2 mg, intravenous, Once, On Wed01/03/25 at 1216, For 1 dose, Prior to IV use, lorazepam injection should be DILUTED with an equal volume of compatible solution; Rate of administration should NOT exceed 2 mg/min. 1225 (Given - Provid er: Heavenly Mtz RN) sodium chloride 0.9 % bolus 1,000 mL (COMPLETED) 1,000 mL, intravenous, at 2,000 mL/hr, Administer over 30 Minutes, Once, On Wed01/03/25 at 1216, For 1 dose 1225 (New Bag - Prov ider: Heavenly Mtz RN)1418 (Stopped - Provider: Heavenly Mtz RN) documented in this encounter Care Teams Operations Support Representative Relationship Specialty Start Date End Date Physician, No Pcp PCP - General 01/03/25 documented as of this encounter
--- NOTE | 2025-01-08 17:40 | ED_ITS ---
HPI - General Adult General Chief complaint: Neuro Symptoms/Deficit Stated complaint: stiff, drooling, unusual behavior Time Seen by Provider: 01/08/25 21:11 Source: patient, family, RN notes reviewed, old records reviewed and certified court/medical interpreter Mode of arrival: ambulatory Limitations: language barrier History of Present Illness ED Provider: Dr. Ivy Ramirez HPI narrative: 34-year-old male with a history of substance use disorder, bipolar disorder presenting with continued symptoms of muscle stiffness and drooling, altered mental status from home, accompanied by his girlfriend who is worried about his medical condition after an overdose that occurred over a week ago now. He was seen in this emergency department yesterday and had a normal lab workup. No new falls or injury. Continued drooling and muscle pain and stiffness. No reported fever. Reports to me that he ?gets medications from his elderly neighbors whom he trusts?. He can not tell me exactly what he uses but at least 1 of these drugs is Klonopin. Admits to his last use of cocaine being over a week ago. Last dose of Klonopin was yesterday. Denies chest pain or difficulty breathing. No reported headache. Related Data Previous Rx's ?Medication ?Instructions ?Recorded loperamide 2 mg capsule (Imodium 2 mg PO Q6H PRN loose stool #10 05/29/22 A-D) caps ondansetron 4 mg disintegrating 4 mg PO Q6H PRN nausea and 05/29/22 tablet vomiting #14 tabs doxycycline hyclate 100 mg tablet 100 mg PO BID 7 days #14 tabs 06/27/22 azithromycin 250 mg tablet See Rx Instructions PO .COM PLEX #6 01/25/23 (Zithromax Z-Gilberto) tabs prednisone 20 mg tablet 20 mg PO BID #10 tabs clindamycin HCl 150 mg capsule 150 mg PO TID 7 days #2 1 caps 02/01/23 ibuprofen 600 mg tablet 600 mg PO TID PRN fever or p ain 02/01/23 #20 tabs benztropine 1 mg tablet 1 mg PO BID #20 tabs 5 methocarbamol 500 mg tablet 1,000 mg (2 x 500 mg) PO Q ID #20 01/08/25 tabs Allergies Allergy/AdvReac Type Severity Reaction Status Date / Time Penicillins (PENICILLINS) Allergy Unknown UNKNOWN Verified 01/08/25 17:42 Review of Systems 2 Review of Systems: As per HPI, full review of systems performed and negative but for the above mentioned pertinent positives and negatives. [facility] Past Medical History Medical History Anxiety Social History Social History Alcohol intake: current Alcohol intake frequency: holidays/special occasions only Alcohol type: beer Substance Use Type: Crack/Cocaine Advance Directives: No Advance Directives Information Provided: No Physical Exam ED Exam Exam: GENERAL: Appears intoxicated, GCS 13, eyes open to voice, slurred speech, no acute distress. SKIN: Normal skin color for ethnicity, warm, dry, no rashes noted. HEENT: Normocephalic, atraumatic, no stridor, posterior oropharynx nonerythematous, dentition intact, EOMI, pupils are pinpoint bilaterally, reactive to light, no drooling. NECK: Soft, supple, no step-offs, no deformities, no lymphadenopathy. CHEST: Heart regular tachycardia, no murmurs, symmetric chest rise and fall. PULMONARY: Clear to auscultation bilaterally, diminished at the bases, no labored breathing, no wheezes/rhales/rhonchi. ABDOMINAL: Soft, nondistended, positive bowel sounds in all quadrants. : Deferred. MUSCULOSKELETAL: Normal tone, full range of motion, no deformities, no peripheral edema. NEURO: GCS 13, eyes open to voice, slightly slurred speech, CN II through XII intact, equal strength and sensation bilateral upper and lower extremities, no focal neurologic deficits. PSYCHIATRIC: Flat affect, poor eye contact. Vital Signs: Vital Signs - 24 hr 01/08/25 17:41 Temperature 97.1 F Pulse Rate 86 Respiratory Rate 18 Blood Pressure 112/68 Pulse Oximetry 100 Oxygen Delivery Method Room Air BMI result Body Mass Index 24.0 Course Course Course Narrative: Rapid medical examination performed in triage by Leanne Adams PA-C. Patient is a 34 year old assigned male at presenting to the emergency department with altered mental status and stiffness. Detailed physical exam and review of systems are deferred to the regulatory affairs assistant. Labs ordered. carton stamper aware. Medications Administered Discontinued Medications Generic Name Dose Route Start Last Admin Trade Name Sameera PRN Reason Stop Dose Admin Benztropine Mesylate 1 mg 01/08/25 22:31 01/08/25 22:43 Benztropine Mesylate 1 Mg Tablet PO 01/08/25 22:32 1 mg ONCE ONE Administration Methocarbamol 1,000 mg 01/08/25 22:31 01/08/25 22:43 Methocarbamol 500 Mg Tablet PO 01/08/25 22:32 1,000 mg ONCE ONE Administration Medical Decision Making Medical Decision Making [facility] Narrative: Patient presents today with a chief complaint of continued altered mental status. Differential diagnosis for AMS is incredibly broad and includes infection, intracranial process such as hemorrhage, stroke or mass, electrolyte abnormality, hypercarbia, hypoxia, toxic encephalopathy, among many others. Broad-based workup was initiated to further evaluate the etiology of patient's symptoms based on the above exam and history. Once again, patient has no focal neurologic deficits. He is certainly more alert and oriented on my exam today compared to yesterday however, his clinical picture really has not changed much. He is describing some severe muscle stiffness but I do not really appreciate that on my exam. He has no evidence of clonus, no rabies exposures. I have high suspicion for benzodiazepine withdrawal versus cocaine intoxication. He was able to give a urine sample today which is positive for benzodiazepines and cocaine. Was given muscle relaxers today for his muscle tightness. Encouraged follow up with primary care regarding his overdose last week. Encouraged return to the emergency department should anything change. Discharged in stable condition. Differential Diagnosis Differential Diagnoses: The differential diagnosis associated with the presentation includes (As above) Admission/Observation Consideration of admission/observation: Escalation of care including admission/observation considered Lab Data [facility] Lab Attestation statement: I reviewed the patient's lab results. 01/08/25 17:48 01/08/25 17:48 Labs: Lab Results 01/08/25 01/08/25 01/08/25 Range/Units 17:48 18:25 21:23 WBC 8.4 (4.8-10.8) X10*3/uL RBC 4.97 (4.60-5.80) X10*6/uL Hgb 15.8 (14.0-18.0) g/dl Hct 45.1 (42.0-52.0) % MCV 90.7 (80.0-98.0) fL MCH 31.8 (27.0-33.0) pg MCHC 35.0 (31.0-36.0) g/dl RDW 12.7 (11.0-16.0) % Plt Count 309 (160-400) X10*3/uL MPV 11.8 (9.4-12.4) fL Immature Gran % (Auto) 0.1 (0.0-0.4) % Neut % (Auto) 61.5 (45-73) % Lymph % (Auto) 29.3 (20-40) % Graham % (Auto) 7.3 (2-11) % Eos % (Auto) 1.1 (0-4) % Baso % (Auto) 0.7 (0-2) % Lymph # (Auto) 2.5 (1.2-4.9) X10*3/uL Graham # (Auto) 0.6 (0.1-1.2) X10*3/uL Eos # (Auto) 0.1 (0.0-0.4) X10*3/uL Baso # (Auto) 0.1 (0.0-0.2) X10*3/uL Abs Immat Gran (auto) 0.01 (0.00-0.03) X10*3/uL Absolute Neuts (auto) 5.2 (2.0-8.3) x10*3/uL Absolute Nucleated RBC 0.000 (0.0-0.012) X10*3/uL Nucleated RBC % (auto) 0.0 (0.0-0.2) /100WBC Sodium 142 (135-145) mmol/L Potassium 4.4 (3.3-5.1) mmol/L Chloride 107 (96-108) mmol/L Carbon Dioxide 28 (22-29) mmol/L Anion Gap 11 L (12-20) BUN 16 (9-16) mg/dL Creatinine 1.09 (0.5-1.4) mg/dL Estim Creat Clear Calc 93.6 Estimated GFR > 60 Random Glucose 119 H (60-115) mg/dL Calcium 9.2 (8.4-10.2) mg/dL Magnesium 2.1 (1.6-2.6) mg/dL Total Bilirubin 0.6 (0.0-1.0) mg/dL AST 19 (5-37) U/L ALT 31 (0-40) U/L Alkaline Phosphatase 82 (39-117) U/L Total Protein 7.4 (6.5-8.0) g/dL Albumin 4.7 (3.5-5.0) g/dL Urine Color Yellow Urine Appearance Clear Urine pH 6.5 (5.0-9.0) Ur Specific [place] 1.025 (1.005-1.025) Urine Protein Negative (Neg-Trace) mg/dL Urine Glucose (UA) Negative (Negative) mg/dL Urine Ketones 15 (Negative) mg/dL Urine Blood Negative (Negative) Urine Nitrite Negative (Negative) Ur Leukocyte Esterase Negative (Negative) Urine Opiates Screen Not Detected (Not Detect) Ur Buprenorphine Scrn Not Detected (Not Detect) ng/mL Ur Oxycodone Screen Not Detected (Not Detect) ng/mL Urine Methadone Screen Not Detected (Not Detect) ng/mL Urine Fentanyl Screen Not Detected (Not Detect) Ur Barbiturates Screen Not Detected (Not Detect) Ur Phencyclidine Scrn Not Detected (Not Detect) Ur Amphetamines Screen Not Detected (Not Detect) U Benzodiazepines Scrn POSITIVE H (Not Detect) Urine Cocaine Screen POSITIVE H (Not Detect) U Marijuana (THC) Screen Not Detected (Not Detect) A.phagocytophil DNA PCR NOT DETECTED (NOT DETECTED) Babesia microti DNA PCR NOT DETECTED (NOT DETECTED) Borrelia sp DNA (PCR) NOT DETECTED (NOT DETECTED) Lyme Screen IgG & IgM <0.90 index Lyme Progressive Test TNP Borrelia miyamotoi (PCR) NOT DETECTED (NOT DETECTED) E.chaffeensis DNA (PCR) NOT DETECTED (NOT DETECTED) Tick-borne Disease PCR SEE NOTE Independent Historian Clinical information obtained from an independent historian. History obtained from or confirmed by: Spouse External Record Review External record reviewed: Inpatient record Prescription Management I considered prescription management with: Pain Medication Chronic Conditions Patient?s care impacted by: Other (polysubstance use, bipolar disorder) Social Determinants Patient?s care significantly limited by Social Determinants of Health including: Other Social Determinant of Health Discharge Plan Discharge Clinical Impression: Muscle rigidity, Withdrawal from recreational drug Patient Disposition: Home, Self-Care Instructions: Polysubstance Use Disorder (ED) Additional Instructions: Use muscle relaxers for stiff muscles and back pain. Try to avoid taking any medications that are not prescribed to you. Many street drugs are laced with fentanyl and can not be trusted, even if you get them from your neighbors. You can try to follow up at the [facility] in [place] to help with your cocaine addiction. The address is [address] [place] [address] . You can return to the emergency department at any time and for any reason. If you notice that the muscle spasms and drooling do not improve over the next several days. Come back to the hospital. If you do not have a primary care physician, please call the [facility] at [phone] to establish a new primary care physician. While waiting to establish a new primary care physician, you can call our [facility] at [phone] for non-emergency needs. Prescriptions: New methocarbamol 500 mg tablet 1,000 mg PO QID Qty: 20 0RF benztropine 1 mg tablet 1 mg PO BID Qty: 20 0RF No Action loperamide [Imodium A-D] 2 mg capsule 2 mg PO Q6H PRN (Reason: loose stool) Qty: 10 0RF Rx Instructions: maximum 4 tabs, 8 mg per day ondansetron 4 mg tablet,disintegrating 4 mg PO Q6H PRN (Reason: nausea and vomiting) Qty: 14 0RF doxycycline hyclate 100 mg tablet 100 mg PO BID 7 Days Qty: 14 0RF azithromycin [Zithromax Z-Gilberto] 250 mg tablet See Rx Instructions .ROUTE .COMPLEX Qty: 6 0RF Rx Instructions: For 250 mg dose pack: take 500 mg today (day 1), then 250 mg for 4 days (days 2-5) prednisone 20 mg tablet 20 mg PO BID Qty: 10 0RF clindamycin HCl 150 mg capsule 150 mg PO TID 7 Days Qty: 21 0RF ibuprofen 600 mg tablet 600 mg PO TID PRN (Reason: fever or pain) Qty: 20 0RF Interventions: ED Discharge Assessment Last Done: 01/09/25 00:04 Discharge Date/Time: 01/09/25 00:05 Print Language: Turkmen
[2025-01-08 17:41] VITALS: BP 112/68; PULSE 86; RESP 18; TEMP 36.2; O2SAT 100; BMI 24.0
[2025-01-08 17:52] LABS: MANUAL DIFF FLAG NO
[2025-01-08 17:58] LABS: Hematocrit 45.1 % (42.0-52.0); Hemoglobin 15.8 g/dl (14.0-18.0); Imm Gran Abs Auto 0.01 X10*3/uL (0.00-0.03); Imm Gran Pct Auto 0.1 % (0.0-0.4); Lymphocytes Absolute Auto 2.5 X10*3/uL (1.2-4.9); Mean Corpuscular HGB Conc 35.0 g/dl (31.0-36.0); Mean Corpuscular Hemoglobin 31.8 pg (27.0-33.0); Mean Corpuscular Volume 90.7 fL (80.0-98.0); NRBC Abs Auto 0.000 X10*3/uL (0.0-0.012); NRBC Pct Auto 0.0 /100WBC (0.0-0.2); Platelet Count 309 X10*3/uL (160-400); Red Blood Count 4.97 X10*6/uL (4.60-5.80); White Blood Count 8.4 X10*3/uL (4.8-10.8)
[2025-01-08 18:07] LABS: Alanine Aminotransferase 31 U/L (0-40); Albumin Level 4.7 g/dL (3.5-5.0); Alkaline Phosphatase 82 U/L (39-117); Anion Gap 11 (12-20); Aspartate Amino Transferase 19 U/L (5-37); Blood Urea Nitrogen 16 mg/dL (9-16); Calcium 9.2 mg/dL (8.4-10.2); Carbon Dioxide 28 mmol/L (22-29); Chloride 107 mmol/L (96-108); Creatinine Clr Calc Pharmacy 93.6; Estimated Glomerular Filt Rate > 60; Magnesium 2.1 mg/dL (1.6-2.6); Potassium 4.4 mmol/L (3.3-5.1); Sodium 142 mmol/L (135-145); Total Protein 7.4 g/dL (6.5-8.0)
--- OUTSIDE RECORDS SUMMARY | 2025-01-08 19:29 | XMS_ITS | Patient Health Record ---
Author Organization [employer]. Address [address] [place] [address] [address] [place] [address] Care Team Providers Care Mechanical System Technician Name Role Phone Christine Hamilton Primary Care Provider Andre Boyer Unavailable [phone] Allergies Allergen (clinical drug ingredient) Drug/Non Drug [...] Risk Notes Problem Moderate recurrent major depression (02592542) Major depressive disorder, recurrent, moderate (F33.1) Active confirmed Problem Insomnia (515834012) Insomnia (G47.00) Active confirmed Problem Backache (995197050) Dorsalgia (M54.9) Active confirmed Problem Gastroesophageal reflux disease with esophagitis (disorder) (414504951) Esophagitis, reflux (K21.0) Active confirmed Plan Of Treatment Pending Test Test Name Order Date X ray : Hand, right 2-3 views 09/05/2019 Lipid Panel-Q-LC 05/10/2019 Comprehensive Metabolic Panel 14+eGFR-LC -Q 05/10/2019 Urinalysis, Lwbsbars-NW-R 05/10/2019 CBC With Differential/[place]-NB-N 04/16 SARS CoV 2 RNA, QL REAL TIME RT PCR-LC 0 09/05/2019 SARS CoV 2 RNA, QL REAL TIME RT PCR-Q SARS-CoV-2, VAHE 10/21/2020 SARS COV 2 AB (IGG) SPIKE, SEMI QN 10/21 Insurance Providers Payer Name Payer Address Payer Phone Subscriber Number Group Number Insured Name Patient Relationship to Insured Coverage Start Date Coverage End Date Rad Complete [facility] [address] [place] [address] [id number] DIRK COLON Self - patient is the insured Medical (General) History Medical History History ICD Code Major depressive disorder, recurrent, mo alejandra F33.1 Surgical History Surgery Date(Month/Year)
--- OUTSIDE RECORDS SUMMARY | 2025-01-08 19:29 | XMS_ITS | Clinical Summary ---
Author Organization [facility] Address [address] [place] [address] Phone Care Team Providers Care Liquid Fertilizer Servicer Name Role Phone Physician, No Pcp Primary [...] EDT - 01/03/2025 2:25 PM EDT Emergency [facility] [address] [place] [phone] Iona Hughes MD Substance use (Primary Dx) Discharge Disposition: Home or Self Care 01/02/2025 11:04 AM EDT - 01/02/2025 4:22 PM EDT Emergency [facility] [address] [place] [phone] Giancarlo Cope MD Dystonia (Primary Dx); Cocaine [...] GEMUSE QTc 470 ms GEMUSE P Wave [place] 60 degrees GEMUSE R [place] 32 degrees GEMUSE T [place] 47 degrees GEMUSE ECG Interpretation Normal sinus rhythm Normal ECG When compared with ECG of 02-JAN-2025 11:12, No significant change was found Confirmed by Keon LEVI JOHN ([id number]) on 01/03/2025 7:33:21 PM GEMUSE 01/03/2025 12:3 8 PM EDT 01/03/2025 7:33 PM EDT us Iona Hughes MD ECG ORDERABLES Final Result Performing Organization Address [facility]/ZIP Co de Phone Number GEMUSE * Troponin I high sensitivity (01/03/2025 12:27 PM EDT) Only the most recent of2 resultswithin the time period is included. [facility] High Sensitivity Troponin I <3 <=79 ng/L [...] ORDERABLES Final R esult Performing Organization Address City/[facility]/ZIP Co de Phone Number [facility] [address] [place] [address], [place] [phone] * D-dimer, quantitative (01/03/2025 12:27 PM EDT) [...] Final R esult [facility] [address] [place] [address], [place] [phone] * XR Chest 1 View (01/02/2025 1:54 [...] Signed Date: 01/02/2025 14:19 ET Workstation ID: [id number] Transcribed By: Self Edit Transcribed Date: 01/02/2025 [...] Signed Date: 01/02/2025 14:19 ET Workstation ID: [id number] Transcribed By: Self Edit Transcribed Date: 01/02/2025 14:18 ET us Giancarlo Cope MD IMG XR PROCEDURES Final Re sult * (ABNORMAL) CBC auto differential (01/02/2025 11:19 AM EDT) WBC 11.2(H) 4.8 - 10.8 K/mcL LAB HEMETOLOGY METHOD 01/02/2025 12:24 PM EDT [facility] RBC 5.30 4.50 - 5.50 M/mcL LAB HEMETOLOGY METHOD 01/02/2025 12:24 PM EDT [facility] Hemoglobin 17.1 13.5 - 17.5 g/dL LAB HEMETOLOGY METHOD 01/02/2025 12:24 PM EDT [facility] Hematocrit 48.0 42.0 - 54.0 % LAB HEMETOLOGY METHOD 01/02/2025 12:24 PM EDT [facility] MCV 90.1 79.0 - 98.0 FL LAB HEMETOLOGY METHOD [facility]/02[facility]2025 [facility] MCH 32.1(H) 27.0 - 32.0 pcg LAB HEMETOLOGY METHOD 01/02/2025 12:24 [facility] MCHC 35.6 32.0 - 37.0 g/dL LAB HEMETOLOGY METHOD 01/02/2025 12:24 PM T [facility] RDW 12.7 11.0 - 15.0 [...] LAB HEMETOLOGY METHOD 01/02/2025 12:24 PM EDT [facility] Lymphocytes Absolute 2.04 1.00 - 5.00 K/mcL LAB HEMETOLOGY METHOD 01/02/2025 12:24 PM EDT [facility] Monocytes Absolute 0.72 0.20 - 1.00 K/mcL LAB HEMETOLOGY METHOD 01/02/2025 12:24 PM EDT [facility] Eosinophils Absolute 0.03 0.00 - 0.50 K/mcL LAB HEMETOLOGY METHOD 01/02/2025 12:24 PM EDT [facility] Basophils Absolute 0.03 0.00 - 0.20 K/mcL LAB HEMETOLOGY METHOD 01/02/2025 12:24 PM EDT [facility] Immature Granulocytes Absolute 0.04(H) 0.00 - 0.03 K/mcL LAB HEMETOLOGY METHOD 01/02/2025 12:24 PM EDT [facility] Blood Venous blood specimen / Unknown Venipuncture / Unknown 01/02/2025 11:19 AM EDT 01/02/2025 12:04 PM EDT us Giancarlo Cope MD LAB BLOOD ORDERABLES Final Result [facility] [address] [place] [address], * Magnesium (01/02/2025 11:19 AM EDT) Magnesium 2.0 1.9 - 2.6 mg/dL LAB CHEMISTRY METHOD 01/02/2025 12:45 PM EDT [facility] Blood Venous blood specimen / Unknown Venipuncture / Unknown 01/02/2025 11:19 AM EDT 01/02/2025 12:04 PM EDT us Giancarlo Cope MD LAB BLOOD ORDERABLES Final Result [facility] [address] [place] [address], [place] [phone] * Lipase (01/02/2025 11:19 AM EDT) Lipase 45 13 - 75 unit/L LAB CHEMISTRY METHOD 01/02/2025 12:45 PM EDT [facility] Blood Venous blood specimen / Unknown Venipuncture / Unknown 01/02/2025 11:19 AM EDT 01/02/2025 12:04 PM EDT us Giancarlo Cope MD LAB BLOOD ORDERABLES Final Result Performing Organization Address [facility]/ZIP Co de Phone Number [facility] [address] [place] [address], [place] [phone] * (ABNORMAL) CK total and CKMB (01/02/2025 11:19 AM EDT) [facility] Total CK 127 22 - 269 unit/L LAB CHEMISTRY METHOD 01/02/2025 1:01 PM EDT [facility] CK-MB <1.0(L) 1.0 - 3.6 ng/mL LAB CHEMISTRY METHOD 01/02/2025 1:01 PM EDT [facility] CK-MB Index <0.0(L) 0.0 - 5.0 LAB CHEMISTRY METHOD 01/02/2025 1:01 PM EDT [facility] Blood Venous blood specimen / Unknown Venipuncture / Unknown 01/02/2025 11:19 AM EDT 01/02/2025 12:04 PM EDT us Giancarlo Cope MD LAB BLOOD ORDERABLES Final Result Performing Organization Address City/[facility]/ZIP Co de Phone Number [facility] [address] [place] [address], [place] [phone] * (ABNORMAL) Comprehensive Metabolic Panel (CMP) (01/02/2025 [...] LAB CHEMISTRY METHOD 01/02/2025 1:01 PM EDT [facility] Alkaline Phosphatase 99 42 - 121 unit/L LAB CHEMISTRY METHOD 01/02/2025 1:01 PM EDT [facility] Total Protein 7.9 6.0 - 8.0 g/dL LAB CHEMISTRY METHOD 01/02/2025 1:01 PM EDT [facility] Albumin 4.2 3.2 - 5.0 g/dL LAB CHEMISTRY METHOD 01/02/2025 1:01 PM EDT [facility] Total Bilirubin 0.6 0.0 - 1.4 mg/dL LAB CHEMISTRY METHOD 01/02/2025 1:01 PM EDT [facility] Blood Venous blood specimen / Unknown Venipuncture / Unknown 01/02/2025 11:19 AM EDT 01/02/2025 12:04 PM EDT us Giancarlo Cope MD LAB BLOOD ORDERABLES Final Result [facility] [address] [place] [address], [place] [phone] from Last 3 Months Insurance [facility] [employer] Care Teams Liquid Fertilizer Servicer Relationship Specialty Start Date End Date Physician, No Pcp PCP - General 01/03/25
--- OUTSIDE RECORDS SUMMARY | 2025-01-08 19:29 | XMS_ITS | Clinical Summary ---
Author Organization [address] Address [address] [place] [phone] Care Team Providers Care Excelsior Cutter Name Role Phone Unavailable Primary Care Provider [...]
--- NOTE | 2025-01-08 19:59 | PC.NURSE ---
pt requesting pain medication repeatedly for 10/10 posterior neck pain. sts that he needs to be able to put head on pillow, pt observed to have head on pillow. Verbal reassurance provided, pt awaiting MD sign up at this time
--- NOTE | 2025-01-08 21:41 | PC.NURSE ---
pt provided urine sample, ambulated independently from exam room to bathroom. pt able to disconnect and reconnect self from cardiac monitoring and blood presure cuff. observed sitting upright on exam stretcher. awaiting MD griffin.
[2025-01-08 22:35] LABS: Cannabinoid Screen Urine Not Detected (Not Detect)
[2025-01-08 23:01] LABS: Appearance Urine Clear; Glucose Urine UA Negative (Negative); PH 6.5 (5.0-9.0); Specific Gravity - Urine 1.025 (1.005-1.025)
[2025-01-08 23:49] VITALS: BP 129/89; PULSE 88; RESP 16; TEMP 36.4; O2SAT 98
[2025-01-09 00:04] VITALS: BP 129/89; PULSE 88; RESP 16; TEMP 36.4; O2SAT 98
[2025-01-10 02:49] LABS: Lyme Abs Screen <0.90 index
[2025-01-11 06:08] LABS: A. Phagocytphilium DNA,RT-PCR NOT DETECTED (NOT DETECTED); Babesia Microti DNA, RT-PCR NOT DETECTED (NOT DETECTED); Borrelia Miyamotoi,DNA RT-PCR NOT DETECTED (NOT DETECTED); E.Chaffeensis DNA RT-PCR NOT DETECTED (NOT DETECTED); Lyme(Borrelia ssp)DNA RT-PCR NOT DETECTED (NOT DETECTED)
== END 2025-01-09 00:05 | disposition home or self-care (01) ==
PROVIDERS: Physician Assistant Medical; Emergency Provider Emergency Medicine
DX: M62.89 Other specified disorders of muscle (principal); F19.939 Other psychoactive substance use, unspecified with withdrawal, unspecified; R41.82 Altered mental status, unspecified; F19.90 Other psychoactive substance use, unspecified, uncomplicated; R29.810 Facial weakness; F14.90 Cocaine use, unspecified, uncomplicated
CPT/HCPCS: 36415; 80053; 80307; 81003; 83735; 85025; 86617; 86618; 87468; 87469; 87478; 87484; 87798; 99284